=== PATIENT | female | born 1990 | race Caucasian/White ===

== ENCOUNTER → 2020-11-03 17:16 | Outpatient (CLI) | payer OTHER, SELFPAY ==
--- NOTE | ~2020-11-03 | XR_ITS ---
EXAMINATION: XR toe 1st RT min 2V INDICATION: Right first toe pain and swelling, initial encounter TECHNIQUE: Three views of the right first toe are obtained. COMPARISON: None available FINDINGS: There is an acute, traumatic, closed, oblique fracture at the dorsal base of the first dist al phalanx which extends to the interphalangeal joint. The fracture involves less than 50% of the art icular surface. Soft tissue swelling surrounds the fracture. Bone alignment is normal. No additional acute osseous abnormality is identified. IMPRESSION: 1. Acute intra-articular fracture at the dorsal base of the first distal phalanx. Reviewed, dictated and finalized at location B. IMPRESSION: 1. Acute intra-articular fracture at the dorsal base of the first distal phalan x.
== END ==
DX: S92.421A Displaced fracture of distal phalanx of right great toe, initial encounter for closed fracture (principal); X58.XXXA Exposure to other specified factors, initial encounter
CPT/HCPCS: 73660

== ENCOUNTER 2022-06-13 20:19 | Outpatient (CLI) | payer BC, SELFPAY ==
[2022-06-13 20:49] VITALS: BP 100/64; PULSE 86; RESP 16; TEMP 36.7
[2022-06-13 21:00] LABS: Basophils Percent Auto 0.3 % (0.2-1.2); Eosinophils Absolute Auto 0.1 K/mm3 (0-0.3); Eosinophils Percent Auto 0.6 % (0-4.4); Hematocrit 32.9 % (37.0-47.0); Hemoglobin 11.3 g/dL (12.0-15.0); Immature Granulocyte Absolute 0.08 K/mm3 (0.00-0.031); Immature Granulocyte Percent A 0.8 % (0-0.5); Lymphocytes Absolute Auto 1.89 K/mm3 (0.9-3.2); Lymphocytes Percent Auto 19.3 % (18.3-44.2); Mean Corpuscular HGB Conc 34.3 g/dl (32-36); Mean Corpuscular Hemoglobin 31.1 pg (26-34); Mean Corpuscular Volume 90.6 fl (80-100); Mean Platelet Volume 10.6 fl (7.4-10.4); Monocytes Absolute Auto 0.9 K/mm3 (0.1-0.6); Monocytes Percent Auto 9.3 % (2.6-8.5); Neutrophils Absolute Auto 6.8 K/mm3 (1.3-6.7); Neutrophils Percent Auto 69.7 % (45.5-73.1); Platelet Count Result 230 k/mm3 (150-375); Red Blood Count 3.63 M/mm3 (4.2-5.4); Red Cell Distribution Width 13.4 % (11.5-14.5); White Blood Count 9.8 K/mm3 (4.5-10.0)
[2022-06-13 21:12] LABS: Appearance Urine Slightly Cloudy (Clear); Bilirubin Urine Negative (Negative); Blood Urine Trace-lysed (Negative); Color Urine Light Yellow (Yellow); Glucose Urine UA Negative (Negative); Ketones Urine Negative (Negative); Leukocyte Esterase Ur Negative LEU/UL (NEGATIVE); Nitrate Urine Negative (Negative); Protein Urine Negative (Negative); Urobilinogen Urine 0.2 mg/dL (<2.0)
[2022-06-13 21:17] LABS: Bacteria Urine Trace /hpf; RBC Urine 0-2 /hpf (0-2); WBC Urine 0-3 /hpf (0-3)
[2022-06-13 21:18] LABS: Alanine Aminotransferase 34 U/L (6-35); Albumin Level 4.2 g/dL (3.5-5.1); Alkaline Phosphatase 93 U/L (38-126); Anion Gap 8 mmol/L (8-16); Aspartate Amino Transferase 27 U/L (14-36); Bilirubin,Total 0.3 mg/dL (0.2-1.3); Blood Urea Nitrogen 7 mg/dL (7-17); Calcium 9.7 mg/dL (8.4-10.2); Carbon Dioxide 22 mmol/L (22-30); Chloride 104 mmol/L (98-107); Estimated Glomerular Filt Rate > 60; Glucose 106 mg/dL (65-110); Potassium 3.6 mmol/L (3.4-5.0); Sodium 134 mmol/L (137-145); Uric Acid 3.7 mg/dL (2.5-7.5)
[2022-06-13 21:20] LABS: Add Urine Microscopic? YES
[2022-06-13 21:24] LABS: Creatinine Urine 12.7 mg/dL; Total Protein Urine Random 15 mg/dL; Ur Ttl Prot Creatinine Ratio 1.18 mg/mg (0-0.20)
--- NOTE | 2022-06-13 21:32 | PC.NURSE ---
Notified Cheyenne Sifuentes CNM of patient lab results and NST results. VSS. Occasional contractions during NST, patient was unaware of contractions and contractions palpated mild. FHT appropriate for gestational age. Order given to have patient continue 24 hour urine collection at home. Patient to follow-up as scheduled.
--- NOTE | 2022-06-13 21:52 | PC.NURSE ---
24 hour urine collection reviewed with patient. Patient instructed to bring 24 hour urine collection back to OB unit upon completion. labor precautions reviewed with patient. Kick counts reviewed with patient. HIP precautions reviewed with patient. Patient states understanding of all discharge instructions and precautions handouts provided to patient. Patient denies any questions and left OB unit ambulating at 2152.
== END 2022-06-13 21:52 | disposition home or self-care (01) ==
LOC: ANHOBOP 20:26 → ANHOBPP 20:26
PROVIDERS: Advanced Practice Midwife; Visit Provider Obstetrics & Gynecology
DX: O13.9 Gestational [pregnancy-induced] hypertension without significant proteinuria, unspecified trimester (principal); Z3A.00 Weeks of gestation of pregnancy not specified
CPT/HCPCS: 36415; 59025; 80053; 81001; 82570; 84156; 84550; 85025; 87086; 99199

== ENCOUNTER 2022-06-14 20:40 | Outpatient (NON) | payer BC, SELFPAY ==
[2022-06-14 21:22] VITALS: BMI 25.3
[2022-06-14 22:14] LABS: Collection Time Urine 24 HOURS
[2022-06-14 22:25] LABS: Creatinine Urine 39.7 mg/dL; Patient Weight 162 Lbs; Total Protein Urine Random 17 mg/dL
[2022-06-14 22:28] LABS: Creatinine Clearance Urine 168.2 ml/min (75-125); Specific Gravity Ur 1.015; Total Protein Urine 24 Hr 442 mg/24hr (28-141); Total Volume 24 Hour Urine 2600 ml
== END 2022-06-14 20:41 | disposition home or self-care (01) ==
LOC: ANHOBOP 20:48
PROVIDERS: Visit Provider Advanced Practice Midwife
DX: O26.899 Other specified pregnancy related conditions, unspecified trimester (principal)
CPT/HCPCS: 81050; 82575; 84156

== ENCOUNTER 2022-07-30 15:58 | Inpatient (IN) | payer BC, SELFPAY ==
[2022-07-30] VITALS (18 sets, daily range): BP systolic 111–137; BP diastolic 69–103; PULSE 75–96; RESP 14–16; TEMP 36.3–37; BMI 27.2
--- NOTE | 2022-07-30 16:21 | PC.NURSE ---
1615: CNM at bedside. Orders to do one dose of Cervidil.
--- NOTE | 2022-07-30 16:23 | WPDOBADMIT ---
Obstetrics - Admit Note Admission Note: record reviewed. No pertinent additions to the history and/or any subsequent changes in the physical findings that are not consistent with the expected course of the were found. IOL, oligohydramnios at term, reviewed with freida bauer cervadil Additions to the history and/or subsequent changes in the physical findings follow. None.
--- NOTE | 2022-07-30 16:52 | LDADM ---
This patient, Philomena Maloney, was admitted to Labor/Delivery/Recovery 105 on 07/30/22 at 15:58. Plans for labor, pain management and were discussed with patient. Patient/family oriented to hospital policies and general routines including ID bracelet, bed and alarms, visiting hours, pain management, procedures, bathroom and other care routines, personal items, smoking policy, room service/diet and guest tray routines, infant security routines, and visiting hours. Patient/Family are encouraged to report perceived risks to care and to ask questions if they do not understand what they are told or what they should do. See OBIX for further documentation.
[2022-07-30 17:37] LABS: Basophils Percent Auto 0.3 % (0.2-1.2); Eosinophils Percent Auto 0.4 % (0-4.4); Hematocrit 35.5 % (37.0-47.0); Hemoglobin 12.1 g/dL (12.0-15.0); Immature Granulocyte Absolute 0.03 K/mm3 (0.00-0.031); Immature Granulocyte Percent A 0.3 % (0-0.5); Lymphocytes Absolute Auto 1.52 K/mm3 (0.9-3.2); Lymphocytes Percent Auto 15.4 % (18.3-44.2); Mean Corpuscular HGB Conc 34.1 g/dl (32-36); Mean Corpuscular Hemoglobin 31.8 pg (26-34); Mean Corpuscular Volume 93.2 fl (80-100); Mean Platelet Volume 10.5 fl (7.4-10.4); Monocytes Percent Auto 9.8 % (2.6-8.5); Neutrophils Absolute Auto 7.3 K/mm3 (1.3-6.7); Neutrophils Percent Auto 73.8 % (45.5-73.1); Platelet Count Result 250 k/mm3 (150-375); Red Blood Count 3.81 M/mm3 (4.2-5.4); Red Cell Distribution Width 13.5 % (11.5-14.5); White Blood Count 9.9 K/mm3 (4.5-10.0)
[2022-07-30] MEDS: DINOPROSTONE 10 MG VAG INSERT VAGINAL (17:39)
--- NOTE | 2022-07-30 18:42 | WPDANESEPP ---
Anes - Eval Pre Procedure Procedure: labor epidural Date/Time: 07/30/22 18:42 Surgeon: marv Preop Diagnosis: pain during labor Pre Op Diagnosis: Induction of Labor Patient Data Age: 31 Gender: F Height: 1.7 m Weight: 79 kg Last Vital Signs Temp 36.8 C 07/30/22 17:01 Pulse 82 07/30/22 18:31 BP 117/78 07/30/22 18:31 O2 Del Method Room Air 07/30/22 16:51 Allergies Allergy/AdvReac Type Severity Reaction Status Date / Time No Known Allergies Allergy Verified 07/30/22 17:54 Home Medications Medication Instructions Recorded Confirmed Type ferrous sulfate 325 mg (65 mg 325 mg PO DAILY 07/02/22 07/02/22 History iron) tablet prenat.vits,nhi,pdh-hluz-yodxu 1 tablet PO HS 07/02/22 07/02/22 History Laboratory Tests 07/30/22 07/30/22 07/30/22 16:27 16:27 16:27 WBC 9.9 K/mm3 K/mm3 (4.5-10.0) RBC 3.81 M/mm3 L M/mm3 (4.2-5.4) Hgb 12.1 g/dL g/dL (12.0-15.0) Hct 35.5 % L % (37.0-47.0) MCV 93.2 fl fl (80-100) MCH 31.8 pg pg (26-34) MCHC 34.1 g/dl g/dl (32-36) RDW 13.5 % % (11.5-14.5) Plt Count 250 k/mm3 k/mm3 (150-375) MPV 10.5 fl H fl (7.4-10.4) Immature Gran % (Auto) 0.3 % % (0-0.5) Neut % (Auto) 73.8 % H % (45.5-73.1) Lymph % (Auto) 15.4 % L % (18.3-44.2) Dawes % (Auto) 9.8 % H % (2.6-8.5) Eos % (Auto) 0.4 % % (0-4.4) Baso % (Auto) 0.3 % % (0.2-1.2) Lymph # (Auto) 1.52 K/mm3 K/mm3 (0.9-3.2) Dawes # (Auto) 1.0 K/mm3 H K/mm3 (0.1-0.6) Eos # (Auto) 0.0 K/mm3 K/mm3 (0-0.3) Baso # (Auto) 0.0 K/mm3 K/mm3 (0.0-0.1) Abs Immat Gran (auto) 0.03 K/mm3 K/mm3 (0.00-0.031) Absolute Neuts (auto) 7.3 K/mm3 H K/mm3 (1.3-6.7) Absolute Nucleated RBC 0.0 K/mm3 K/mm3 (0.0-0.012) Nucleated RBC % 0.0 % % (0.0-0.2) RPR Pending Blood Type B Positive Antibody Screen Negative Patient hx anesthesia problems: none Family hx anesthesia problems: none Results Review: All pre-operative results and documents have been reviewed as part of the pre-operative evaluation. [facility] Past Medical History Medical History (Updated 07/30/22 @ 18:42 by Julia Alonso CRNA) IUP (intrauterine ), incidental Family History Family History (Updated 07/02/22 @ 14:41 by Sasha Khoury RN) Father Heart attack Grandparent Colon cancer Mother Hypothyroidism Social History Social History Smoking status: Never smoker Substance use: former Lack of Transportation: No Lack of Food: Never True Current Housing: I Have Housing Concerned About Future Housing: No Difficulty Paying Gas/Electric Bills: No Difficulty Paying for Meds: No Currently Unemployed: No Education: Associate Degree Difficulty w/ Childcare or Family Care: No Spiritual care concerns: No Exam Day of Procedure 07/30/22 18:42
[2022-07-30] MEDS: ACETAMINOPHEN 500 MG TABLET 1000 MG PO (22:04)
[2022-07-31] VITALS (131 sets, daily range): BP systolic 89–127; BP diastolic 43–99; PULSE 61–153; RESP 16; TEMP 36.3–36.8; O2SAT 85–100
[2022-07-31] MEDS: LACTATED RINGERS 1,000 ML 125 ML IV CONT ×2 (06:28→12:31)
[2022-07-31] MEDS: OXYTOCIN 30 UNITS/NS 500 ML 30 UNITS/500 ML BAG 6 UNITS IV CONT (06:34)
--- NOTE | 2022-07-31 07:52 | PM.OBPNVD ---
OB - PN: Subj Subjective Date/time seen: 07/31/22 07:52 SVE 2/90/-1 AROM small amount of clear, odorless fluid, anticipate vaginal delivery OB - PN: Obj Data Labs 07/30/22 16:27 Labs: Laboratory Results - last 24 hr 07/30/22 07/30/22 16:27 16:27 WBC 9.9 RBC 3.81 L Hgb 12.1 Hct 35.5 L MCV 93.2 MCH 31.8 MCHC 34.1 RDW 13.5 Plt Count 250 MPV 10.5 H Immature Gran % (Auto) 0.3 Neut % (Auto) 73.8 H Lymph % (Auto) 15.4 L Shoshone % (Auto) 9.8 H Eos % (Auto) 0.4 Baso % (Auto) 0.3 Lymph # (Auto) 1.52 [place]oshone # (Auto) 1.0 H Eos # (Auto) 0.0 Baso # (Auto) 0.0 Abs Immat Gran (auto) 0.03 Absolute Neuts (auto) 7.3 H Absolute Nucleated RBC 0.0 Nucleated RBC % 0.0 Blood Type B Positive Antibody Screen Negative OB - PN A/P Time Spent With Patient Time: Total time spent is greater than 50% in coordination of care (as documented) at patient's floor/unit and/or counseling patient:
[2022-07-31] MEDS: LACTATED RINGERS 1,000 ML 999 ML IV CONT (08:03)
[2022-07-31] MEDS: SODIUM CHLORIDE 0.9% IV 300 ML 600 ML I-UTERINE (11:59)
--- NOTE | 2022-07-31 14:51 | PM.OBPRVD ---
OB - Delivery Note Procedure Delivery date: 07/31/22 Procedure: Events: Oligohydramnios Delivery augmentation: Rupture of Membranes and Pitocin Delivery monitor: External FHT and Internal Uterine Route of delivery: Laceration Description: Perineal - 2nd Degree Delivery repair: vicryl Specimen: No Quantitative Blood Loss (ml): 213 Anesthesia type: Epidural Disposition: Floor Narrative: mom and baby stable and doing skin to skin [place] Baby Date of : 07/31/22 Time of : 14:33 Weeks of gestation at delivery: 40 Infant gender: Male Weight (pounds): 7 Weight (ounces): 9 presentation: compound position: Right Occiput Anterior Placenta delivery description: Spontaneous Cord Vessel Description: 3 Vessels, Clamped/Cut, Delayed Cord Clamping and Around Body score one minute: 9 score five minutes: 9
[2022-07-31] MEDS: OXYTOCIN 30 UNITS/NS 500 ML 30 UNITS/500 ML BAG 125 UNITS IV CONT (15:09)
[2022-07-31] MEDS: IBUPROFEN 600 MG TABLET PO ×2 (17:17→23:30)
[2022-07-31] MEDS: BENZOCAINE 20% AER SPR (*SP) 56 GM CAN 1 SPRAY TOPICAL (17:18)
[2022-07-31] MEDS: WITCH HAZEL 40 PADS 1 PAD TOPICAL (17:18)
--- NOTE | 2022-07-31 17:52 | OBPPTRN ---
1750-Patient transferred to post room #283 via wheelchair. Support person present. Oriented to unit, room, information board, rooming in, admission packet and security measures. Patient verbalizes understanding.
[2022-07-31] MEDS: DOCUSATE SODIUM 100 MG CAPSULE PO (23:30)
[2022-08-01 04:27] LABS: Hematocrit 29.9 % (37.0-47.0); Hemoglobin 10.1 g/dL (12.0-15.0)
[2022-08-01 08:00] VITALS: BP 113/74; PULSE 87; RESP 16; TEMP 36.4; O2SAT 99
--- NOTE | 2022-08-01 09:07 | PM.OBPNVD ---
OB - PN: Subj Subjective Date/time seen: 08/01/22 09:07 Patient comments: no complaints baby status: doing well OB - PN: Obj Data Labs 08/01/22 02:56 Labs: Laboratory Results - last 24 hr 08/01/22 02:56 Hgb 10.1 L Hct 29.9 L OB - PN A/P Plan day: 1 Plan: routine care Time Spent With Patient Time: Total time spent is greater than 50% in coordination of care (as documented) at patient's floor/unit and/or counseling patient: Time with patient: less than 15 minutes Review of Systems Review of Systems: All systems reviewed & are unremarkable except as noted in HPI and below Exam Narrative: Fundus firm and vaginal flow controlled. No lower ext redness, warmth, or edema. Negative homans. Const: General: comfortable Chest: Breast/axilla inspection: normal inspection of the breasts Resp: Effort & Inspection: normal respiratory effort Cardio: Rate: regular rate GI: GI Palp: Yes Soft to palpation Psych: Appearance: grossly normal Affect: normal affect Attitude: cooperative Thought content: Yes Normal thought content present Judgement: Good judgement present (Psych)
[2022-08-01] MEDS: DOCUSATE SODIUM 100 MG CAPSULE PO ×2 (09:10→15:55)
[2022-08-01] MEDS: IBUPROFEN 600 MG TABLET PO ×3 (09:10→21:35)
[2022-08-01] MEDS: MULTIVIT/MIN/PREN/FOL AC/IRON TABLET 1 TAB PO (09:10)
--- NOTE | 2022-08-01 09:30 | WPDANLDPN2 ---
Anes-Prog Note L&D Date/Time: 08/01/22 09:30 Comfortable throughout: labor and delivery Neuraxial method: epidural Epidural/Spinal procedure site: clean & non-tender Neuro status: Neuro function grossly intact. Cardiovascular status: normal Respiratory status: normal Airway patency: baseline Mental status: baseline Post-Op hydration status: normal Vital Signs: Last Vital Signs Temp 97.5 F L 08/01/22 08:00 Pulse 87 08/01/22 08:00 Resp 16 08/01/22 08:00 BP 113/74 08/01/22 08:00 Pulse Ox 99 08/01/22 08:00 O2 Del Method Room Air 07/30/22 16:51 Pain score (VAS): 0 I/O: Intake & Output 07/31/22 08/01/22 08/01/22 23:59 07:59 15:59 Intake Total 500 Balance 500 Patient feedback: Patient satisfied with anesthetic care.
[2022-08-01 20:01] VITALS: BP 105/67; PULSE 88; RESP 18; TEMP 36.6; O2SAT 100
[2022-08-02 07:45] VITALS: BP 106/69; PULSE 72; RESP 16; TEMP 36.5; O2SAT 99
--- NOTE | 2022-08-02 08:00 | PM.OBPNVD ---
OB - PN: Subj Subjective Date/time seen: 08/02/22 08:00 Patient comments: no complaints baby status: doing well OB - PN: Obj Data Labs 08/01/22 02:56 OB - PN A/P Plan day: 2 Plan: routine care and discharge home (F/U in 4 weeks) Time Spent With Patient Time: Total time spent is greater than 50% in coordination of care (as documented) at patient's floor/unit and/or counseling patient: Time with patient: less than 15 minutes Review of Systems Review of Systems: All systems reviewed & are unremarkable except as noted in HPI and below Exam Narrative: Fundus firm and vaginal flow controlled. No lower ext redness, warmth, or edema. Negative homans. Const: General: comfortable Chest: Breast/axilla inspection: normal inspection of the breasts Resp: Effort & Inspection: normal respiratory effort Cardio: Rate: regular rate GI: GI Palp: Yes Soft to palpation Psych: Appearance: grossly normal Affect: normal affect Attitude: cooperative Thought content: Yes Normal thought content present Judgement: Good judgement present (Psych)
[2022-08-02 09:40] LABS: Rapid Plasma Reagin Non-Reactive (NonReactive)
[2022-08-02] MEDS: DOCUSATE SODIUM 100 MG CAPSULE PO (10:07)
[2022-08-03 10:59] VITALS: BP 117/77; PULSE 87; RESP 16; TEMP 37.1; O2SAT 99
--- NOTE | 2022-08-16 07:53 | PM.OBDSVD ---
DS: Admitting Diagnosis Discharge Date 08/02/22 Admitting Diagnosis labor DS: Discharge Diagnosis Discharge Diagnosis (1) Vaginal delivery: Code(s): O80 - Encounter for full-term uncomplicated delivery Status: Acute OB - DS: Summary OB Procedures : None OB Procedures Intrapartum: Spontaneous Vag Delivery OB Procedures: : None Time Spent with Patient Time attestation: Total time spent providing and/or coordinating discharge services: Discharge Plan Discharge Attending physician on discharge: Philomena Sifuentes Consulting providers: Philomena Sifuentes; Sonal Monteiro; Julia Alonso; Yanira Navarrete Discharging Clinician: Sonal Monteiro Patient Disposition: Home, Self-Care Activity: pelvic rest Diet: as tolerated Discharge Instructions: Education: Mom and Baby Guide Given to: Mother Follow-Up: Call your delivering provider's office for an appointment to be seen in: 6 Weeks Mom and baby should come to the [facility] for the follow-up appointment. Appointment Date/Time: Wednesday, August 03, 2022 at 11:00 am What to expect at your follow-up visit: Physical Assessment Call [phone] if you are unable to keep your appointment time. BREAST CARE: * Wear a snug supportive bra. * For engorgement discomfort: Breast Feeding: * Apply warm moist washcloths * Express milk as needed to relieve engorgement * Wear loose clothing Bottle Feeding: * May apply ice packs * For sore nipples: * Identify correct latch-on * Apply warm moist washcloths before and after nursing * Air dry nipples after nursing * May apply Lansinoh cream to nipples PERINEAL CARE: * Until bleeding stops, use your sergio bottle after urinating * Change your pad frequently throughout the day * You may take sitz baths several times a day (fill your bathtub with warm water and soak for 20 minutes.) Do NOT bathe in the water * No tub baths until seen by your physician - You may shower ACTIVITY: * Rest as much as possible. * Do not exercise or lift anything heavier than your baby (such as laundry or other children.) * Avoid stairs or driving as much as possible. * Do not put anything into the vagina. No douching, tampons, or sexual activity until seen by physician. NOTIFY PHYSICIAN IF YOU HAVE ANY QUESTIONS OR IF ANY OF THE FOLLOWING SYMPTOMS OCCUR: * If your episiotomy or incision becomes red, swollen, or more painful than what you have experienced in the hospital. * If your vaginal bleeding becomes foul smelling. * If your vaginal bleeding becomes more heavy than a period or if your bleeding changes from pink to bright red. However, you may pass an occasional walnut-sized clot once or twice for the first week . * If you experience a sharp, shooting pain in you calves. * If you discover a hard, reddened area on your breast or if you experience flu-like symptoms. DIET: * Eat regular, well-balanced meals. * Drink plenty of fluids daily. If , drink to thirst. Follow-up/Referrals: Philomena Sifuentes CNM [Certified Nurse Hospital Clinic Assistant] - 6 Weeks Discharge Medications: Continued prenat.vits,nhi,cdb-zbjh-njjgx Tablet 1 tablet PO HS Discontinued ferrous sulfate 325 mg (65 mg iron) Tablet 325 mg PO DAILY Date of admission: 07/30/22 15:58 Primary Care Provider: UNKNOWN,DOCTOR Admitting Provider: John Hartley Attending physician on admission: John Hartley Condition: Stable
== END 2022-08-02 12:17 | disposition home or self-care (01) | DRG 807 ==
LOC: ANHLDR 16:09 → ANHOB2 07-31 17:50
PROVIDERS: Admitting Provider Obstetrics & Gynecology; Referring Provider Advanced Practice Midwife; Visit Provider Obstetrics & Gynecology
DX: O41.03X0 Oligohydramnios, third trimester, not applicable or unspecified (principal); Z37.0 Single live birth; O70.1 Second degree perineal laceration during delivery; Z3A.40 40 weeks gestation of pregnancy
CPT/HCPCS: 36415; 85014; 85018; 85025; 86592; 86850; 86900; 86901; A9270; J2590; J2795; J7030; J7120

== ENCOUNTER 2023-05-13 00:48 | Day surgery (SDC) | payer BC, SELFPAY ==
[2023-04-19 10:26] VITALS: BMI 22.0
--- NOTE | 2023-05-11 09:22 | SUR.PREOP ---
Patient called regarding upcoming procedure. Reviewed preop instructions, appointment times, and procedure prep.
[2023-05-13 09:43] VITALS: BP 106/70; PULSE 104; RESP 16; TEMP 36.4; O2SAT 100; BMI 21.9
[2023-05-13] MEDS: LACTATED RINGERS 1,000 ML 150 ML IV CONT (10:19)
--- NOTE | 2023-05-13 10:30 | PM.HPGS ---
History of Present Illness History of Present Illness Consent: Risks, benefits, and alternatives have been discussed and questions answered. Patient agrees to proceed with procedure. Chief complaint: Melena,Anal Fissure,IBS-C Narrative: Philomena Maloney is a 32 year old female here for colonoscopy, few months after having vaginal delivery had some intermittent bleeding with anal discomfort, diagnosed with fissure. Recently doing ok, also h/o constipation Review of Systems Constitutional: Constitutional: Denies headache(s) and Denies weakness Eyes: Eyes: Denies blurry vision ENT: Reports Normal hearing present, Denies headache(s) and Denies neck pain Cardiovascular: Cardiovascular: Denies chest pain and Denies dyspnea Respiratory: Respiratory: Denies dyspnea Gastrointestinal: Gastrointestinal: Reports no additional gastrointestinal complaints Genitourinary: Genitourinary: Denies dysuria Musculoskeletal: Musculoskeletal: Denies neck pain Integumentary/Breasts: Skin/Breast: Denies dry skin Neurologic: Reports Normal hearing present, Denies headache(s) and Denies weakness Psychiatric: Psychiatric: Denies anxiety Endocrine: Endocrine: Denies change in body appearance Hematologic/Lymphatic: Hematologic/Lymphatic: Denies easy bleeding Allergic/Immunologic: Allergic/Immunologic: Denies urticaria PMFSH Past Medical History Medical History (Updated 03/15/23 @ 16:09 by Ale Anna, ANA) Anal fissure Anal skin tag Family hx colonic polyps Family hx of colon cancer Hematochezia Irritable bowel syndrome with constipation IUP (intrauterine ), incidental Family History Family History (System 09/06/22 @ 13:08 by Scott Cristina) Father Heart attack Grandparent Colon cancer Mother Hypothyroidism Social History Social History (System 09/06/22 @ 13:08 by Scott Cristina) Smoking status: Never smoker Alcohol intake: current Alcohol use details: 5 drinks monthly Substance use: former Substance use type: does not use Lack of Transportation: No Lack of Food: Never True Current Housing: I Have Housing Concerned About Future Housing: No Difficulty Paying Gas/Electric Bills: No Difficulty Paying for Meds: No Currently Unemployed: No Education: Associate Degree Difficulty w/ Childcare or Family Care: No Living arrangements: with family Spiritual care concerns: No Meds Home Medications and Allergies Home Medications Medication Instructions Recorded Confirmed Type polyethylene glycol 3350 17 17 g PO DAILY 01/02/24 01/02/24 History gram/dose oral powder (Miralax) Allergies Allergy/AdvReac Type Severity Reaction Status Date / Time No Known Allergies Allergy Verified 04/19/23 10:27 Vital Signs Vital Signs - 24 hr 05/13/23 09:43 Temperature 97.5 F L Pulse Rate 104 H Respiratory Rate 16 Blood Pressure 106/70 Pulse Oximetry 100 Oxygen Delivery Room Air Exam Const: General: comfortable and no acute distress HENMT: Face/Nose/Sinus: Normal nares present Eyes: General: appearance normal, both eyes and all related structures Neck: Neck: no JVD Resp: Auscultation: clear to auscultation bilaterally Cardio: Rate: regular rate Rhythm: regular rhythm GI: Inspection: non-distended GI Palp: Yes Soft to palpation Skin: General skin exam: normal color Neuro: General: gait normal Speech: normal speech Extrem: General: normal to inspection Psych: Mental Status: mental status grossly normal Assessment and Plan Assessment and plan (1) Hematochezia: Code(s): K92.1 - Melena Status: Acute Assessment and Plan: probably perianal source here for colonoscopy
[2023-05-13 10:50] VITALS: BP 86/50; PULSE 94; RESP 20; O2SAT 100
[2023-05-13 11:00] VITALS: BP 99/66; PULSE 85; RESP 17; O2SAT 100
[2023-05-13 11:10] VITALS: BP 108/72; PULSE 76; RESP 17; O2SAT 100
--- NOTE | 2023-06-06 09:09 | P.PNAN_ITS ---
Anes - Initial Pre Proc Eval Procedure: Operation Date: 05/13/23 11:00 Proposed Procedures p Colonoscopy - Joe Quezada MD Date/Time: 06/06/23 09:09 Surgeon: Joe Quezada MD Pre Op Diagnosis: Melena,Anal Fissure,IBS-C Patient Data Age: 32 Gender: F Height: 1.7 m Weight: 63.5 kg Last Vital Signs Temp 97.5 F L 05/13/23 09:43 Pulse 76 05/13/23 11:10 Resp 17 05/13/23 11:10 BP 108/72 05/13/23 11:10 Pulse Ox 100 05/13/23 11:10 O2 Del Method Room Air 05/13/23 11:10 Allergies Allergy/AdvReac Type Severity Reaction Status Date / Time No Known Allergies Allergy Verified 04/19/23 10:27 Home Medications Medication Instructions Recorded Confirmed Type polyethylene glycol 3350 17 17 g PO DAILY 04/19/23 04/19/23 History gram/dose oral powder (Miralax) Patient hx anesthesia problems: none Family hx anesthesia problems: none Results Review: All pre-operative results and documents have been reviewed as part of the pre- operative evaluation. [facility] Past Medical History Medical History (Updated 03/15/23 @ 16:09 by Ale Anna APRN) Anal fissure Anal skin tag Family hx colonic polyps Family hx of colon cancer Hematochezia Irritable bowel syndrome with constipation IUP (intrauterine ), incidental Family History Family History (System 09/06/22 @ 13:08 by Scott Cristina) Father Heart attack Grandparent Colon cancer Mother Hypothyroidism Social History Social History (System 09/06/22 @ 13:08 by Scott Cristina) Smoking status: Never smoker Alcohol intake: current Alcohol use details: 5 drinks monthly Substance use: former Substance use type: does not use Lack of Transportation: No Lack of Food: Never True Current Housing: I Have Housing Concerned About Future Housing: No Difficulty Paying Gas/Electric Bills: No Difficulty Paying for Meds: No Currently Unemployed: No Education: Associate Degree Difficulty w/ Childcare or Family Care: No Living arrangements: with family Spiritual care concerns: No Anes - Eval Final PreProcedure Day of Procedure 06/06/23 09:09 Patient weight: normal Heart: regular rate and rhythm Lungs: clear to auscultation Airway: Mallampati scale class II Neurological: alert and oriented Last oral intake: >/= 8 hours ASA classification: II Emergent: no Anesthetic plan: proceed Anesthesia type and monitoring: general GIVS and standard monitoring Results Review: All pre-operative results and documents have been reviewed as part of the pre- operative evaluation. Informed Consent: The patient's anesthetic plan and its attendant risks and benefits were discussed with the patient/family/POA. Questions were solicited and answers provided to the satisfaction of the patient/family/POA.
== END 2023-05-13 11:19 | disposition home or self-care (01) ==
PROVIDERS: Referring Provider Obstetrics & Gynecology; Visit Provider Internal Medicine Gastroenterology
PROC: 0DJD8ZZ Inspection of Lower Intestinal Tract, Via Natural or Artificial Opening Endoscopic (ICD-10-PCS; CPT 45378; principal; 2023-05-13 11:00)
DX: K92.1 Melena (principal); Z80.0 Family history of malignant neoplasm of digestive organs; K58.1 Irritable bowel syndrome with constipation
CPT/HCPCS: 45378; J2704; J7120

== ENCOUNTER 2023-11-03 14:18 | Emergency (ER) | payer BC, SELFPAY ==
--- NOTE | ~2023-11-03 | US_ITS ---
Right upper quadrant ULTRASOUND Ordering provider: Radha Villalpando PA-C History: . biliary colic vs cholecystitis . Comparison: None. FINDINGS: LIVER: Normal size and echotexture. The liver measures 16.8 cm. No focal hepatic lesions or perihepat ic fluid collections are identified. Normal flow of the portal GALLBLADDER: Unremarkable. No evidence for stones, sludge, gallbladder wall thickening or pericholecy stic fluid collections. The wall thickness is 2 mm. A negative sonographic Jeffers's sign was noted. BILIARY DUCTS: No evidence for intra or extrahepatic biliary dilation. Common bile duct measures 5 mm in diameter which is within normal limits. PANCREAS: Normal echotexture and size. IMPRESSION: Unremarkable right upper quadrant ultrasound of the abdomen. Reviewed, dictated and finalized at location A.
[2023-11-03 14:36] VITALS: BP 131/57; PULSE 100; RESP 18; TEMP 36.4; O2SAT 100
--- NOTE | 2023-11-03 14:38 | ED.ABDPAIN ---
HPI - Abdominal Pain General Chief Complaint: Abdominal Pain <John Corea APRN - Last Filed: 11/03/23 14:40> Stated Complaint: upper abd pain, nausea <John Corea APRN - Last Filed: 11/03/23 14:40> Time Seen by Provider: 11/03/23 18:34 <John Corea APRN - Last Filed: 11/03/23 14:40> Focused HPI: 33-year-old female nontoxic appearing history of IBS presents emergency room for evaluation of upper abdominal pain that probably started earlier today. This associated with the nausea. Denies any vomiting, diarrhea or constipation. Denies any fevers. Patient describes the pain as labor pains. GENERAL: Well-appearing, well-nourished, and in no acute distress. HEAD: Normocephalic, atraumatic. CHEST: Clear to auscultation. No respiratory distress. HEART: Regular rate and rhythm. NEURO: Alert and oriented x3. Patient screened in triage and initial orders placed. Additional care and disposition to be based upon diagnostic testing and treatment. <John Corea APRN - Last Filed: 11/03/23 14:40> History of Present Illness HPI narrative: Agree with the above triage note. 33-year-old female with a reported history of IBS presents to the emergency department for right upper quadrant abdominal pain that started around 1:30 p.m.. Patient states she had pizza an hour later began having pain in her epigastrium and right upper quadrant. She reported associated belching and nausea. Described the pain as a stabbing pain. States she has had this pain in the past but has never been worked up for it. Denies prior abdominal surgeries. States she did have some diarrhea last night, denies obstipation. Denies fever, vomiting, chest pain shortness of breath, dysuria or hematuria, urinary frequency urgency. She is 15 months . She notes that she had a colonoscopy 1 year ago which showed an anal fissure but was otherwise unremarkable. States her symptoms have resolved now other than some minimal discomfort in her epigastrium and right upper quadrant. Denies melena or hematochezia. <Radha Villalpando PA-C - Last Filed: 11/03/23 20:23> Related Data Home Medications: Home Medications Medication Instructions Recorded Confirmed polyethylene glycol 3350 17 17 g PO DAILY 04/19/23 06/09/23 gram/dose oral powder (Miralax) <John Corea APRN - Last Filed: 11/03/23 14:40> Allergies/Adverse Reactions: Allergies Allergy/AdvReac Type Severity Reaction Status Date / Time No Known Allergies Allergy Verified 04/19/23 10:27 <John Corea APRN - Last Filed: 11/03/23 14:40> Review of Systems Review of Systems: All systems reviewed & are unremarkable except as noted in HPI and below <Radha Villalpando PA-C - Last Filed: 11/03/23 20:23> [facility] Past Medical History Medical History: Medical History Anal fissure Anal skin tag Family hx colonic polyps Family hx of colon cancer Hematochezia Irritable bowel syndrome with constipation IUP (intrauterine ), incidental <John Corea APRN - Last Filed: 11/03/23 14:40> Family History Family History: Family History Father Heart attack Grandparent Colon cancer Mother Hypothyroidism <John Corea APRN - Last Filed: 11/03/23 14:40> Social History Social History: Social History Smoking status: Never smoker Alcohol intake: current Alcohol use details: 5 drinks monthly Substance use: former Substance use type: does not use Lack of Transportation: No Lack of Food: Never True Current Housing: I Have Housing Concerned About Future Housing: No Difficulty Paying Gas/Electric Bills: No Difficulty Paying for Meds: No Currently Unemployed: No Education: Associate Degree Difficulty w/ Childcare or Family Ca
[2023-11-03 15:13] LABS: Basophils Percent Auto 0.4 % (0.2-1.2); Eosinophils Percent Auto 0.2 % (0-4.4); Hematocrit 38.2 % (37.0-47.0); Lymphocytes Absolute Auto 1.14 K/mm3 (0.9-3.2); Mean Corpuscular Hemoglobin 30.6 pg (26-34); Mean Corpuscular Volume 89.9 fl (80-100); Mean Platelet Volume 10.6 fl (7.4-10.4); Monocytes Absolute Auto 0.7 K/mm3 (0.1-0.6); Monocytes Percent Auto 13.5 % (2.6-8.5); Neutrophils Absolute Auto 3.1 K/mm3 (1.3-6.7); Neutrophils Percent Auto 62.9 % (45.5-73.1); Platelet Count Result 223 k/mm3 (150-375); Red Blood Count 4.25 M/mm3 (4.2-5.4); Red Cell Distribution Width 12.3 % (11.5-14.5)
[2023-11-03 15:23] LABS: Alanine Aminotransferase 12 U/L (6-35); Alkaline Phosphatase 56 U/L (38-126); Anion Gap 12 mmol/L (4-12); Appearance Urine Clear (Clear); Aspartate Amino Transferase 21 U/L (14-36); Bacteria Urine 2+ /hpf; Bilirubin Urine Negative (Negative); Bilirubin,Total 0.5 mg/dL (0.2-1.3); Blood Urea Nitrogen 13 mg/dL (7-17); Blood Urine 2+ (Negative); Calcium 9.4 mg/dL (8.4-10.2); Calcium Oxalate Crystals Urine Present /hpf; Carbon Dioxide 24 mmol/L (22-30); Chloride 101 mmol/L (98-107); Color Urine Yellow (Yellow); Estimated Glomerular Filt Rate > 60; Glucose 99 mg/dL (65-110); Glucose Urine UA Negative (Negative); Ketones Urine Trace mg/dL (Negative); Leukocyte Esterase Ur 1+ LEU/UL (Negative); Lipase 89 U/L (23-300); Need Manual Microscopic Reviewed; Nitrate Urine Negative (Negative); Potassium 3.9 mmol/L (3.4-5.0); Protein Urine Trace mg/dL (Negative); Sodium 137 mmol/L (137-145); Specific Grav Ur 1.031 (1.001-1.035); Squamous Epithelial Cell Urine Few /hpf (Few)
[2023-11-03 15:24] LABS: Add Urine Microscopic? YES
[2023-11-03 19:17] LABS: Pregnancy On Board Control Positive; Urine Pregnancy Test Negative
[2023-11-03] MEDS: BELLADONNA ALK/PHENOB ELIX 10 ML, MAG HYDROX/ALUMINUM HYD/SIMETH 30 ML, LIDOCAINE HCL 2... PO (19:28)
[2023-11-03] MEDS: FAMOTIDINE 20 MG/2 ML VIAL IV PUSH (19:29)
[2023-11-03 19:34] VITALS: BP 114/81; PULSE 84; RESP 16; O2SAT 100
[2023-11-03 19:49] LABS: Lactic Acid Reflex 1.4 mmol/L (0.7-2.0)
[2023-11-03 20:35] VITALS: BP 125/72; PULSE 74; RESP 18; TEMP 36.8; O2SAT 100
== END 2023-11-03 20:36 | disposition home or self-care (01) ==
PROVIDERS: Nurse Practitioner Family; Emergency Provider Physician Assistant
DX: R10.13 Epigastric pain (principal); K58.1 Irritable bowel syndrome with constipation
CPT/HCPCS: 36415; 76705; 80053; 81001; 81025; 83605; 83690; 85025; 87086; 96374; 99284; A9270

== ENCOUNTER 2025-04-14 12:02 | Emergency (ER) | payer BC, SELFPAY ==
--- NOTE | ~2025-04-14 | XR_ITS ---
Examination: XR chest 2V Clinical History: cough Comparison: None Technique: PA and Lateral Findings: Cardiomediastinal silhouette normal size and configuration. Lungs clear. No acute bony abnormality. IMPRESSION: 1. No acute cardiopulmonary findings. Reviewed, dictated and finalized at location R. 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
--- OUTSIDE RECORDS SUMMARY | 2025-04-14 12:08 | XMS_ITS | Data Portability ---
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 Patient will come back in a year unless there are new symptoms. [email or web address] Not available 06/15/2024 16:26:51 Plan of Treatment Reminders Order Date Submit Date Provider Last Modified By Organization Details Last Modified Time Details Appointments None recorded. Lab None recorded. Referral pelvic floor therapy referral 2024 025 [facility], [address], [address], [place], [address], 5 12:39:53 gastroenter ologist referral 2022 023 [facility], [address], [address], [place], [address], 3 10:40:15 Procedures None recorded. Surgeries None recorded. Imaging US, obstetric, biophysical profile + non-stress test 2022 023 [email or web address] [facility], [address], [address], [place], [address], 3 15:42:58 non-stress test 2022 023 [place], [facility] [address], [place], [address], 3 16:16:19 Medication Orders metronidazo le 500 mg tablet 2022 023 [email or web address] [id number], [address], [place], [id number], 5 16:30:40 nystatin-tr iamcinolone 100,000 unit/gram-0 .1 % topical ointment 2022 023 [email or web address] [id number], [address], [place], [id number], 3 15:54:51 Patient TargetsNo targets recorded. Patient InstructionsNo instructions recorded. Reason for Referral Viner Operator Referral for Hematochezia Referring Physician: Brit Landaverde, MANAGER RESEARCH DEVELOPMENT, Encounter Date: 02/23/2023 Pelvic Floor Therapy Referra l for Dyspareunia Referring Physician: Awais May MANAGER RESEARCH DEVELOPMENT, Encounter Date: 06/15/2024 Results Created Date Observation Date Name Description Value Unit Range Abnormal Flag Note LastModifiedBy Organization Detail LastModifiedTime 07/03/1907/02/2022 CBC W/DIF F WBC 8.1 10'3/ uL 3.6-10 .2 Not Available [facility] (Lab) [address], [place], [address], 07/03/2022 03:24:19 07/03/19 23 07/02/2022 CBC W/DIF F RBC 3.54 10'6/ uL (based on docume nted legal sex) 4.10-5 .30 low Not Available [facility] (Lab) [address], [place], [address], 07/03/2022 03:24:19 07/03/19 23 07/02/2022 CBC W/DIF F HGB 11.2 g/dL (based on docume nted legal sex) 11.9-1 5.8 low Not Available [facility] (Lab) [address], [place], [address], 07/03/2022 03:24:19 07/03/19 23 07/02/2022 CBC W/DIF F HCT 33.7 % (based on docume nted legal sex) 37.4-4 8.3 low Not Available [facility] (Lab) [address], [place], [address], 07/03/2022 03:24:19 07/03/19 23 07/02/2022 CBC W/DIF F MCV 95.2 fL 82.0-9 9.0 Not Available [facility] (Lab) [address], [place], [address], 07/03/2022 03:24:19 07/03/19 23 07/02/2022 CBC W/DIF F MCH 31.6 pg 27.0-3 3.0 Not Available [facility] (Lab) [address], [place], [address], 07/03/2022 03:24:19 07/03/19 23 07/02/2022 CBC W/DIF F MCHC 33.2 g/dL 32.0-3 6.0 Not Available [facility] (Lab) [address], [place], [address], 07/03/2022 03:24:19 07/03/19 23 07/02/2022 CBC W/DIF F RDW 13.5 % 11.0-1 5.0 Not Available [facility] (Lab) [address], [place], [address], 07/03/2022 03:24:19 07/03/19 23 07/02/2022 CBC W/DIF F plt 245 10'3/ uL 150-45 0 Not Available [facility] (Lab) [address] [facility], [place], [address], 07/03/2022 03:24:19 07/03/19 23 07/02/2022 CBC W/DIF F MPV 11.9 fL 9.8-12 .7 Not Available [facility] (Lab) [address], [place], [address], 07/03/2022 03:24:19 07/03/19 23 07/02/2022 CBC W/DIF F NRBC's 0.0 % 0 Not Available [facility] (Lab) [address], [place], [address], 07/03/2022 03:24:19 07/03/19 23 07/02/2022 CBC W/DIF F absolute NRBCs 0.0 10'3/ uL 0 Not Available [facility] (Lab) [address], [place], [address], 07/03/2022 03:24:19 07/03/19 23 07/02/2022 CBC W/DIF F neutrophils 72.4 % 37.0-7 2.0 high Not Available [facility] (Lab) [address] [facility], [place], [address], 07/03/2022 03:24:19 07/03/19 23 07/02/2022 CBC W/DIF F lymphocytes 15.8 % 16.0-4 8.0 low Not Available [facility] (Lab) [address] [facility], [place], [address], 07/03/2022 03:24:19 07/03/19 23 07/02/2022 CBC W/DIF F monocytes 9.8 % 4.0-14 .0 Not Available [facility] (Lab) [address], [place], [address], 07/03/2022 03:24:19 07/03/19 23 07/02/2022 CBC W/DIF F eosinophils 0.9 % 0.0-9. 0 Not Available [facility] (Lab) [address] [facility], [place], [address], 07/03/2022 03:24:19 07/03/19 23 07/02/2022 CBC W/DIF F basophils 0.4 % 0.0-2. 0 Not Available [facility] (Lab) [address] [facility], [place], [address], 07/03/2022 03:24:19 07/03/19 23 07/02/2022 CBC W/DIF F immature granulocytes 0.7 % no define d refere nce range Not Available [facility] (Lab) [address] [facility], [place], [address], 07/03/2022 03:24:19 07/03/19 23 07/02/2022 CBC W/DIF F absolute neutrophils 5.9 10'3/ uL 1.1-6. 0 Not Available [facility] (Lab) [address] [facility], [place], [address], 07/03/2022 03:24:19 07/03/19 23 07/02/2022 CBC W/DIF F absolute lymphocytes 1.3 10'3/ uL 0.7-3. 4 Not Available [facility] (Lab) [address] [facility], [place], [address], 07/03/2022 03:24:19 07/03/19 23 07/02/2022 CBC W/DIF F absolute monocytes 0.8 10'3/ uL 0.3-1. 0 Not Available [facility] (Lab) [address] [facility], [place], [address], 07/03/2022 03:24:19 07/03/19 23 07/02/2022 CBC W/DIF F absolute eosinophils 0.1 10'3/ uL 0.0-0. 6 Not Available [facility] (Lab) [address] [facility], [place], [address], 07/03/2022 03:24:19 07/03/19 23 07/02/2022 CBC W/DIF F absolute basophils 0.0 10'3/ uL 0.0-0. 1 Not Available [facility] (Lab) [address] [facility], [place], [address], 07/03/2022 03:24:19 07/03/19 23 07/02/2022 CBC W/DIF F absolute immature granulocytes 0.1 10'3/ uL 0.00-0 .10 2022 1:52 AM: P indic ates parti al resul ts on a panel have been relea sed. Addit ional resul ts will follo w. 2022 1:52 AM: This resul t has been final verif ied. No addit ional or white ed resul ts are expec jesus. Not Available [facility] (Lab) [address] [facility], [place], [address], 07/03/2022 03:24:19 07/03/19 23 07/02/2022 URIC ACID uric acid 4.7 mg/dL 2.3-6. 6 Not Available [facility] (Lab) [address] [facility], [place], [address], 07/03/2022 03:24:23 07/03/19 23 07/02/2022 CMP(C OMPRE HENSI VE METAB OLIC PANEL ) sodium 136 mmol/ L 133-14 6 Not Available [facility] (Lab) [address] [facility], [place], [address], 07/03/2022 03:24:24 07/03/19 23 07/02/2022 CMP(C OMPRE HENSI VE METAB OLIC PANEL ) potassium 4.1 mmol/ L 3.5-5. 1 Not Available [facility] (Lab) [address] [facility], [place], [address], 07/03/2022 03:24:24 07/03/19 23 07/02/2022 CMP(C OMPRE HENSI VE METAB OLIC PANEL ) chloride 103 mmol/ L 98-107 Not Available [facility] (Lab) [address] [facility], [place], [address], 07/03/2022 03:24:24 07/03/19 23 07/02/2022 CMP(C OMPRE HENSI VE METAB OLIC PANEL ) carbon dioxide 26 mmol/ L 21-31 Not Available [facility] (Lab) [address] [facility], [place], [address], 07/03/2022 03:24:24 07/03/19 23 07/02/2022 CMP(C OMPRE HENSI VE METAB OLIC PANEL ) anion gap 7 mmol/ L 4-13 Not Available [facility] (Lab) [address] [facility], [place], [address], 07/03/2022 03:24:24 07/03/19 23 07/02/2022 CMP(C OMPRE HENSI VE METAB OLIC PANEL ) blood urea nitrogen 8 mg/dL 7-25 Not Available [facility] (Lab) [address] [facility], [place], [address], 07/03/2022 03:24:24 07/03/19 23 07/02/2022 CMP(C OMPRE HENSI VE METAB OLIC PANEL ) creatinine 0.55 mg/dL 0.60-1 .30 low Not Available [facility] (Lab) [address] [facility], [place], [address], 07/03/2022 03:24:24 07/03/19 23 07/02/2022 CMP(C OMPRE HENSI VE METAB OLIC PANEL ) egfrcr (CKD-epi 2020) >90 mL/mi n/1.7 3_m2 >=60 Not Available [facility] (Lab) [address] [facility], [place], [address], 07/03/2022 03:24:24 07/03/19 23 07/02/2022 CMP(C OMPRE HENSI VE METAB OLIC PANEL ) calcium 9.2 mg/dL 8.3-10 .5 Not Available [facility] (Lab) [address] [facility], [place], [address], 07/03/2022 03:24:24 07/03/19 23 07/02/2022 CMP(C OMPRE HENSI VE METAB OLIC PANEL ) glucose 65 mg/dL 70-100 low Not Available [facility] (Lab) [address] [facility], [place], [address], 07/03/2022 03:24:24 07/03/19 23 07/02/2022 CMP(C OMPRE HENSI VE METAB OLIC PANEL ) protein, total 6.0 g/dL 6.4-8. 3 low Not Available [facility] (Lab) [address] [facility], [place], [address], 07/03/2022 03:24:24 07/03/19 23 07/02/2022 CMP(C OMPRE HENSI VE METAB OLIC PANEL ) albumin 3.6 g/dL 3.5-5. 0 Not Available [facility] (Lab) [address] [facility], [place], [address], 07/03/2022 03:24:24 07/03/19 23 07/02/2022 CMP(C OMPRE HENSI VE METAB OLIC PANEL ) ALT 22 units /L 9-43 Not Available [facility] (Lab) [address] [place], [address], 07/03/2022 03:24:24 07/03/19 23 07/02/2022 CMP(C OMPRE HENSI VE METAB OLIC PANEL ) alkaline phosphatase 93 units /L 34-104 Not Available [facility] (Lab) [address] [place], [address], 07/03/2022 03:24:24 07/03/19 23 07/02/2022 CMP(C OMPRE HENSI VE METAB OLIC PANEL ) AST 16 units /L 13-39 Not Available [facility] (Lab) [address] [place], [address], 07/03/2022 03:24:24 07/03/19 23 07/02/2022 CMP(C OMPRE HENSI VE METAB OLIC PANEL ) bilirubin, total 0.3 mg/dL 0.2-1. 2 Not Available [facility] (Lab) [address] [facility], [place], [address], 07/03/2022 03:24:24 07/03/19 23 07/02/2022 CULTU RE: GROUP B STREP SCREE N, REFLE X SUSCE PTIBI LITY result report SEE RESULT S BELOW Test: Cultu re: Group B Strep , Refle x Susce ptibi lity ([facility]/ [facility] ) Speci men Sourc e: Vagin a/Rec sam Speci men Type: Vagin al/Re ctal Speci men Date: 2022 1:24 PM Resul t Date: 2022 3:52 PM Resul t Statu s: Final resul t Abnor mal: No Resul ting Lab: [facility] [address] [facility] [address] Tel: CULTU RE ----- ----- ----- --- No Group B strep isola jesus at 2 days (ave ctive broth enhan cemen t) Not Available [facility] (Lab) [address] [facility], [place], [address], 07/05/2022 16:55:28 07/10/19 23 07/09/2022 CBC W/DIF F WBC 8.2 10'3/ uL 3.6-10 .2 Not Available [facility] (Lab) [address] [facility], [place], [address], 07/10/2022 04:22:38 07/10/19 23 07/09/2022 CBC W/DIF F RBC 3.77 10'6/ uL (based on docume nted legal sex) 4.10-5 .30 low Not Available [facility] (Lab) [address] [place], [address], 07/10/2022 04:22:38 07/10/19 23 07/09/2022 CBC W/DIF F HGB 11.6 g/dL (based on docume nted legal sex) 11.9-1 5.8 low Not Available [facility] (Lab) [address], [place], [address], 07/10/2022 04:22:38 07/10/19 23 07/09/2022 CBC W/DIF F HCT 35.2 % (based on docume nted legal sex) 37.4-4 8.3 low Not Available [facility] (Lab) [address], [place], [address], 07/10/2022 04:22:38 07/10/19 23 07/09/2022 CBC W/DIF F MCV 93.4 fL 82.0-9 9.0 Not Available [facility] (Lab) [address], [place], [address], 07/10/2022 04:22:38 07/10/19 23 07/09/2022 CBC W/DIF F MCH 30.8 pg 27.0-3 3.0 Not Available [facility] (Lab) [address] [facility], [place], [address], 07/10/2022 04:22:38 07/10/19 23 07/09/2022 CBC W/DIF F MCHC 33.0 g/dL 32.0-3 6.0 Not Available [facility] (Lab) [address], [place], [address], 07/10/2022 04:22:38 07/10/19 23 07/09/2022 CBC W/DIF F RDW 13.6 % 11.0-1 5.0 Not Available [facility] (Lab) [address], [place], [address], 07/10/2022 04:22:38 07/10/19 23 07/09/2022 CBC W/DIF F plt 272 10'3/ uL 150-45 0 Not Available [facility] (Lab) [address] [facility], [place], [address], 07/10/2022 04:22:38 07/10/19 23 07/09/2022 CBC W/DIF F MPV 11.8 fL 9.8-12 .7 Not Available [facility] (Lab) [address] [facility], [place], [address], 07/10/2022 04:22:38 07/10/19 23 07/09/2022 CBC W/DIF F NRBC's 0.0 % 0 Not Available [facility] (Lab) [address] [facility], [place], [address], 07/10/2022 04:22:38 07/10/19 23 07/09/2022 CBC W/DIF F absolute NRBCs 0.0 10'3/ uL 0 Not Available [facility] (Lab) [address] [facility], [place], [address], 07/10/2022 04:22:38 07/10/19 23 07/09/2022 CBC W/DIF F neutrophils 73.8 % 37.0-7 2.0 high Not Available [facility] (Lab) [address] [facility], [place], [address], 07/10/2022 04:22:38 07/10/19 23 07/09/2022 CBC W/DIF F lymphocytes 15.4 % 16.0-4 8.0 low Not Available [facility] (Lab) [address] [facility], [place], [address], 07/10/2022 04:22:38 07/10/19 23 07/09/2022 CBC W/DIF F monocytes 9.4 % 4.0-14 .0 Not Available [facility] (Lab) [address] [place], [address], 07/10/2022 04:22:38 07/10/19 23 07/09/2022 CBC W/DIF F eosinophils 0.7 % 0.0-9. 0 Not Available [facility] (Lab) [address] [place], [address], 07/10/2022 04:22:38 07/10/19 23 07/09/2022 CBC W/DIF F basophils 0.2 % 0.0-2. 0 Not Available [facility] (Lab) [address] [place], [address], 07/10/2022 04:22:38 07/10/19 23 07/09/2022 CBC W/DIF F immature granulocytes 0.5 % no define d refere nce range Not Available [facility] (Lab) [address] [facility], [place], [address], 07/10/2022 04:22:38 07/10/19 23 07/09/2022 CBC W/DIF F absolute neutrophils 6.0 10'3/ uL 1.1-6. 0 Not Available [facility] (Lab) [address] [facility], [place], [address], 07/10/2022 04:22:38 07/10/19 23 07/09/2022 CBC W/DIF F absolute lymphocytes 1.3 10'3/ uL 0.7-3. 4 Not Available [facility] (Lab) [address] [place], [address], 07/10/2022 04:22:38 07/10/19 23 07/09/2022 CBC W/DIF F absolute monocytes 0.8 10'3/ uL 0.3-1. 0 Not Available [facility] (Lab) [address] [place], [address], 07/10/2022 04:22:38 07/10/19 23 07/09/2022 CBC W/DIF F absolute eosinophils 0.1 10'3/ uL 0.0-0. 6 Not Available [facility] (Lab) [address] [place], [address], 07/10/2022 04:22:38 07/10/19 23 07/09/2022 CBC W/DIF F absolute basophils 0.0 10'3/ uL 0.0-0. 1 Not Available [facility] (Lab) [address] [facility], [place], [address], 07/10/2022 04:22:38 07/10/19 23 07/09/2022 CBC W/DIF F absolute immature granulocytes 0.0 10'3/ uL 0.00-0 .10 2022 3:10 AM: P indic ates parti al resul ts on a panel have been relea sed. Addit ional resul ts will follo w. 2022 3:10 AM: This resul t has been final verif ied. No addit ional or white ed resul ts are expec jesus. Not Available [facility] (Lab) [address] [facility], [place], [address], 07/10/2022 04:22:38 07/10/19 23 07/09/2022 URIC ACID uric acid 4.2 mg/dL 2.3-6. 6 Not Available [facility] (Lab) [address] [facility], [place], [address], 07/10/2022 04:22:38 07/10/19 23 07/09/2022 CMP(C OMPRE HENSI VE METAB OLIC PANEL ) sodium 136 mmol/ L 133-14 6 Not Available [facility] (Lab) [address] [facility], [place], [address], 07/10/2022 04:22:39 07/10/19 23 07/09/2022 CMP(C OMPRE HENSI VE METAB OLIC PANEL ) potassium 3.7 mmol/ L 3.5-5. 1 Not Available [facility] (Lab) [address] [facility], [place], [address], 07/10/2022 04:22:39 07/10/19 23 07/09/2022 CMP(C OMPRE HENSI VE METAB OLIC PANEL ) chloride 104 mmol/ L 98-107 Not Available [facility] (Lab) [address] [facility], [place], [address], 07/10/2022 04:22:39 07/10/19 23 07/09/2022 CMP(C OMPRE HENSI VE METAB OLIC PANEL ) carbon dioxide 24 mmol/ L 21-31 Not Available [facility] (Lab) [address] [facility], [place], [address], 07/10/2022 04:22:39 07/10/19 23 07/09/2022 CMP(C OMPRE HENSI VE METAB OLIC PANEL ) anion gap 8 mmol/ L 4-13 Not Available [facility] (Lab) [address] [facility], [place], [address], 07/10/2022 04:22:39 07/10/19 23 07/09/2022 CMP(C OMPRE HENSI VE METAB OLIC PANEL ) blood urea nitrogen 8 mg/dL 7-25 Not Available [facility] (Lab) [address] [facility], [place], [address], 07/10/2022 04:22:39 07/10/19 23 07/09/2022 CMP(C OMPRE HENSI VE METAB OLIC PANEL ) creatinine 0.51 mg/dL 0.60-1 .30 low Not Available [facility] (Lab) [address] [facility], [place], [address], 07/10/2022 04:22:39 07/10/19 23 07/09/2022 CMP(C OMPRE HENSI VE METAB OLIC PANEL ) egfrcr (CKD-epi 2020) >90 mL/mi n/1.7 3_m2 >=60 Not Available [facility] (Lab) [address] [facility], [place], [address], 07/10/2022 04:22:39 07/10/19 23 07/09/2022 CMP(C OMPRE HENSI VE METAB OLIC PANEL ) calcium 9.1 mg/dL 8.3-10 .5 Not Available [facility] (Lab) [address] [facility], [place], [address], 07/10/2022 04:22:39 07/10/19 23 07/09/2022 CMP(C OMPRE HENSI VE METAB OLIC PANEL ) glucose 89 mg/dL 70-100 Not Available [facility] (Lab) [address] [facility], [place], [address], 07/10/2022 04:22:39 07/10/19 23 07/09/2022 CMP(C OMPRE HENSI VE METAB OLIC PANEL ) protein, total 6.5 g/dL 6.4-8. 3 Not Available [facility] (Lab) [address] [facility], [place], [address], 07/10/2022 04:22:39 07/10/19 23 07/09/2022 CMP(C OMPRE HENSI VE METAB OLIC PANEL ) albumin 3.7 g/dL 3.5-5. 0 Not Available [facility] (Lab) [address] [facility], [place], [address], 07/10/2022 04:22:39 07/10/19 23 07/09/2022 CMP(C OMPRE HENSI VE METAB OLIC PANEL ) ALT 18 units /L 9-43 Not Available [facility] (Lab) [address] [place], [address], 07/10/2022 04:22:39 07/10/19 23 07/09/2022 CMP(C OMPRE HENSI VE METAB OLIC PANEL ) alkaline phosphatase 106 units /L 34-104 high Not Available [facility] (Lab) [address] [place], [address], 07/10/2022 04:22:39 07/10/19 23 07/09/2022 CMP(C OMPRE HENSI VE METAB OLIC PANEL ) AST 17 units /L 13-39 Not Available [facility] (Lab) [address] [place], [address], 07/10/2022 04:22:39 07/10/19 23 07/09/2022 CMP(C OMPRE HENSI VE METAB OLIC PANEL ) bilirubin, total 0.3 mg/dL 0.2-1. 2 Not Available [facility] (Lab) [address], [place], [address], 07/10/2022 04:22:39 07/17/19 23 07/16/2022 CBC W/DIF F WBC 8.1 10'3/ uL 3.6-10 .2 Not Available [facility] (Lab) [address], [place], [address], 07/17/2022 02:42:33 07/17/19 23 07/16/2022 CBC W/DIF F RBC 3.83 10'6/ uL (based on docume nted legal sex) 4.10-5 .30 low Not Available [facility] (Lab) [address], [place], [address], 07/17/2022 02:42:33 07/17/19 23 07/16/2022 CBC W/DIF F HGB 11.7 g/dL (based on docume nted legal sex) 11.9-1 5.8 low Not Available [facility] (Lab) [address], [place], [address], 07/17/2022 02:42:33 07/17/19 23 07/16/2022 CBC W/DIF F HCT 36.6 % (based on docume nted legal sex) 37.4-4 8.3 low Not Available [facility] (Lab) [address] [place], [address], 07/17/2022 02:42:33 07/17/19 23 07/16/2022 CBC W/DIF F MCV 95.6 fL 82.0-9 9.0 Not Available [facility] (Lab) [address] [place], [address], 07/17/2022 02:42:33 07/17/19 23 07/16/2022 CBC W/DIF F MCH 30.5 pg 27.0-3 3.0 Not Available [facility] (Lab) [address], [place], [address], 07/17/2022 02:42:33 07/17/19 23 07/16/2022 CBC W/DIF F MCHC 32.0 g/dL 32.0-3 6.0 Not Available [facility] (Lab) [address], [place], [address], 07/17/2022 02:42:33 07/17/19 23 07/16/2022 CBC W/DIF F RDW 13.6 % 11.0-1 5.0 Not Available [facility] (Lab) [address], [place], [address], 07/17/2022 02:42:33 07/17/19 23 07/16/2022 CBC W/DIF F plt 247 10'3/ uL 150-45 0 Not Available [facility] (Lab) [address], [place], [address], 07/17/2022 02:42:33 07/17/19 23 07/16/2022 CBC W/DIF F MPV 11.5 fL 9.8-12 .7 Not Available [facility] (Lab) [address], [place], [address], 07/17/2022 02:42:33 07/17/19 23 07/16/2022 CBC W/DIF F NRBC's 0.0 % 0 Not Available [facility] (Lab) [address], [place], [address], 07/17/2022 02:42:33 07/17/19 23 07/16/2022 CBC W/DIF F absolute NRBCs 0.0 10'3/ uL 0 Not Available [facility] (Lab) [address], [place], [address], 07/17/2022 02:42:33 07/17/19 23 07/16/2022 CBC W/DIF F neutrophils 73.0 % 37.0-7 2.0 high Not Available [facility] (Lab) [address] [facility], [place], [address], 07/17/2022 02:42:33 07/17/19 23 07/16/2022 CBC W/DIF F lymphocytes 16.1 % 16.0-4 8.0 Not Available [facility] (Lab) [address] [facility], [place], [address], 07/17/2022 02:42:33 07/17/19 23 07/16/2022 CBC W/DIF F monocytes 9.4 % 4.0-14 .0 Not Available [facility] (Lab) [address] [facility], [place], [address], 07/17/2022 02:42:33 07/17/19 23 07/16/2022 CBC W/DIF F eosinophils 0.9 % 0.0-9. 0 Not Available [facility] (Lab) [address] [facility], [place], [address], 07/17/2022 02:42:33 07/17/19 23 07/16/2022 CBC W/DIF F basophils 0.2 % 0.0-2. 0 Not Available [facility] (Lab) [address] [facility], [place], [address], 07/17/2022 02:42:33 07/17/19 23 07/16/2022 CBC W/DIF F immature granulocytes 0.4 % no define d refere nce range Not Available [facility] (Lab) [address] [place], [address], 07/17/2022 02:42:33 07/17/19 23 07/16/2022 CBC W/DIF F absolute neutrophils 5.9 10'3/ uL 1.1-6. 0 Not Available [facility] (Lab) [address] [facility], [place], [address], 07/17/2022 02:42:33 07/17/19 23 07/16/2022 CBC W/DIF F absolute lymphocytes 1.3 10'3/ uL 0.7-3. 4 Not Available [facility] (Lab) [address] [facility], [place], [address], 07/17/2022 02:42:33 07/17/19 23 07/16/2022 CBC W/DIF F absolute monocytes 0.8 10'3/ uL 0.3-1. 0 Not Available [facility] (Lab) [address] [facility], [place], [address], 07/17/2022 02:42:33 07/17/19 23 07/16/2022 CBC W/DIF F absolute eosinophils 0.1 10'3/ uL 0.0-0. 6 Not Available [facility] (Lab) [address] [facility], [place], [address], 07/17/2022 02:42:33 07/17/19 23 07/16/2022 CBC W/DIF F absolute basophils 0.0 10'3/ uL 0.0-0. 1 Not Available [facility] (Lab) [address] [facility], [place], [address], 07/17/2022 02:42:33 07/17/19 23 07/16/2022 CBC W/DIF F absolute immature granulocytes 0.0 10'3/ uL 0.00-0 .10 023 1:26 AM: P indic ates parti al resul ts on a panel have been relea sed. Addit ional resul ts will follo w. 023 1:26 AM: This resul t has been final verif ied. No addit ional or white ed resul ts are expec jesus. Not Available [facility] (Lab) [address] [facility], [place], [address], 07/17/2022 02:42:33 07/17/19 23 07/16/2022 URIC ACID uric acid 4.2 mg/dL 2.3-6. 6 Not Available [facility] (Lab) [address] [facility], [place], [address], 07/17/2022 02:42:34 07/17/19 23 07/16/2022 CMP(C OMPRE HENSI VE METAB OLIC PANEL ) sodium 140 mmol/ L 133-14 6 Not Available [facility] (Lab) [address] [facility], [place], [address], 07/17/2022 02:42:34 07/17/19 23 07/16/2022 CMP(C OMPRE HENSI VE METAB OLIC PANEL ) potassium 4.3 mmol/ L 3.5-5. 1 Not Available [facility] (Lab) [address], [place], [address], 07/17/2022 02:42:34 07/17/19 23 07/16/2022 CMP(C OMPRE HENSI VE METAB OLIC PANEL ) chloride 106 mmol/ L 98-107 Not Available [facility] (Lab) [address], [place], [address], 07/17/2022 02:42:34 07/17/19 23 07/16/2022 CMP(C OMPRE HENSI VE METAB OLIC PANEL ) carbon dioxide 26 mmol/ L 21-31 Not Available [facility] (Lab) [address], [place], [address], 07/17/2022 02:42:34 07/17/19 23 07/16/2022 CMP(C OMPRE HENSI VE METAB OLIC PANEL ) anion gap 8 mmol/ L 4-13 Not Available [facility] (Lab) [address], [place], [address], 07/17/2022 02:42:34 07/17/19 23 07/16/2022 CMP(C OMPRE HENSI VE METAB OLIC PANEL ) blood urea nitrogen 7 mg/dL 7-25 Not Available [facility] (Lab) [address], [place], [address], 07/17/2022 02:42:34 07/17/19 23 07/16/2022 CMP(C OMPRE HENSI VE METAB OLIC PANEL ) creatinine 0.59 mg/dL 0.60-1 .30 low Not Available [facility] (Lab) [address], [place], [address], 07/17/2022 02:42:34 07/17/19 23 07/16/2022 CMP(C OMPRE HENSI VE METAB OLIC PANEL ) egfrcr (CKD-epi 2020) >90 mL/mi n/1.7 3_m2 >=60 Not Available [facility] (Lab) [address], [place], [address], 07/17/2022 02:42:34 07/17/19 23 07/16/2022 CMP(C OMPRE HENSI VE METAB OLIC PANEL ) calcium 9.6 mg/dL 8.3-10 .5 Not Available [facility] (Lab) [address], [place], [address], 07/17/2022 02:42:34 07/17/19 23 07/16/2022 CMP(C OMPRE HENSI VE METAB OLIC PANEL ) glucose 73 mg/dL 70-100 Not Available [facility] (Lab) [address], [place], [address], 07/17/2022 02:42:34 07/17/19 23 07/16/2022 CMP(C OMPRE HENSI VE METAB OLIC PANEL ) protein, total 6.5 g/dL 6.4-8. 3 Not Available [facility] (Lab) [address], [place], [address], 07/17/2022 02:42:34 07/17/19 23 07/16/2022 CMP(C OMPRE HENSI VE METAB OLIC PANEL ) albumin 3.7 g/dL 3.5-5. 0 Not Available [facility] (Lab) [address], [place], [address], 07/17/2022 02:42:34 07/17/19 23 07/16/2022 CMP(C OMPRE HENSI VE METAB OLIC PANEL ) ALT 17 units /L 9-43 Not Available [facility] (Lab) [address], [place], [address], 07/17/2022 02:42:34 07/17/19 23 07/16/2022 CMP(C OMPRE HENSI VE METAB OLIC PANEL ) alkaline phosphatase 111 units /L 34-104 high Not Available [facility] (Lab) [address], [place], [address], 07/17/2022 02:42:34 07/17/19 23 07/16/2022 CMP(C OMPRE HENSI VE METAB OLIC PANEL ) AST 17 units /L 13-39 Not Available [facility] (Lab) [address], [place], [address], 07/17/2022 02:42:34 07/17/19 23 07/16/2022 CMP(C OMPRE HENSI VE METAB OLIC PANEL ) bilirubin, total 0.3 mg/dL 0.2-1. 2 Not Available [facility] (Lab) [address], [place], [address], 07/17/2022 02:42:34 07/22/19 23 07/21/2022 CBC W/DIF F WBC 8.6 10'3/ uL 3.6-10 .2 Not Available [facility] (Lab) [address], [place], [address], 07/22/2022 06:14:25 07/22/19 23 07/21/2022 CBC W/DIF F RBC 3.79 10'6/ uL (based on docume nted legal sex) 4.10-5 .30 low Not Available [facility] (Lab) [address], [place], [address], 07/22/2022 06:14:25 07/22/1907/21/2022 CBC W/DIF F HGB 11.7 g/dL (based on docume nted legal sex) 11.9-1 5.8 low Not Available [facility] (Lab) [address], [place], [address], 07/22/2022 06:14:25 07/22/1907/21/2022 CBC W/DIF F HCT 35.2 % (based on docume nted legal sex) 37.4-4 8.3 low Not Available [facility] (Lab) [address], [place], [address], 07/22/2022 06:14:25 07/22/1907/21/2022 CBC W/DIF F MCV 92.9 fL 82.0-9 9.0 Not Available [facility] (Lab) [address], [place], [address], 07/22/2022 06:14:25 07/22/1907/21/2022 CBC W/DIF F MCH 30.9 pg 27.0-3 3.0 Not Available [facility] (Lab) [address], [place], [address], 07/22/2022 06:14:25 07/22/1907/21/2022 CBC W/DIF F MCHC 33.2 g/dL 32.0-3 6.0 Not Available [facility] (Lab) [address], [place], [address], 07/22/2022 06:14:25 07/22/1907/21/2022 CBC W/DIF F RDW 13.3 % 11.0-1 5.0 Not Available [facility] (Lab) [address], [place], [address], 07/22/2022 06:14:25 07/22/1907/21/2022 CBC W/DIF F plt 255 10'3/ uL 150-45 0 Not Available [facility] (Lab) [address], [place], [address], 07/22/2022 06:14:25 07/22/1907/21/2022 CBC W/DIF F MPV 11.8 fL 9.8-12 .7 Not Available [facility] (Lab) [address], [place], [address], 07/22/2022 06:14:25 07/22/1907/21/2022 CBC W/DIF F NRBC's 0.0 % 0 Not Available [facility] (Lab) [address], [place], [address], 07/22/2022 06:14:25 07/22/1907/21/2022 CBC W/DIF F absolute NRBCs 0.0 10'3/ uL 0 Not Available [facility] (Lab) [address], [place], [address], 07/22/2022 06:14:25 07/22/1907/21/2022 CBC W/DIF F neutrophils 73.0 % 37.0-7 2.0 high Not Available [facility] (Lab) [address], [place], [address], 07/22/2022 06:14:25 07/22/1907/21/2022 CBC W/DIF F lymphocytes 16.6 % 16.0-4 8.0 Not Available [facility] (Lab) [address], [place], [address], 07/22/2022 06:14:25 07/22/1907/21/2022 CBC W/DIF F monocytes 9.2 % 4.0-14 .0 Not Available [facility] (Lab) [address], [place], [address], 07/22/2022 06:14:25 07/22/1907/21/2022 CBC W/DIF F eosinophils 0.6 % 0.0-9. 0 Not Available [facility] (Lab) [address] [place], [address], 07/22/2022 06:14:25 07/22/1907/21/2022 CBC W/DIF F basophils 0.3 % 0.0-2. 0 Not Available [facility] (Lab) [address], [place], [address], 07/22/2022 06:14:25 07/22/1907/21/2022 CBC W/DIF F immature granulocytes 0.3 % no define d refere nce range Not Available [facility] (Lab) [address], [place], [address], 07/22/2022 06:14:25 07/22/19 23 07/21/2022 CBC W/DIF F absolute neutrophils 6.3 10'3/ uL 1.1-6. 0 high Not Available [facility] (Lab) [address], [place], [address], 07/22/2022 06:14:25 07/22/1907/21/2022 CBC W/DIF F absolute lymphocytes 1.4 10'3/ uL 0.7-3. 4 Not Available [facility] (Lab) [address] [place], [address], 07/22/2022 06:14:25 07/22/19 23 07/21/2022 CBC W/DIF F absolute monocytes 0.8 10'3/ uL 0.3-1. 0 Not Available [facility] (Lab) [address] [place], [address], 07/22/2022 06:14:25 07/22/19 23 07/21/2022 CBC W/DIF F absolute eosinophils 0.1 10'3/ uL 0.0-0. 6 Not Available [facility] (Lab) [address] [place], [address], 07/22/2022 06:14:25 07/22/19 23 07/21/2022 CBC W/DIF F absolute basophils 0.0 10'3/ uL 0.0-0. 1 Not Available [facility] (Lab) [address], [place], [address], 07/22/2022 06:14:25 07/22/19 23 07/21/2022 CBC W/DIF F absolute immature granulocytes 0.0 10'3/ uL 0.00-0 .10 023 4:54 AM: P indic ates parti al resul ts on a panel have been relea sed. Addit ional resul ts will follo w. 023 4:54 AM: This resul t has been final verif ied. No addit ional or white ed resul ts are expec jesus. Not Available [facility] (Lab) [address], [place], [address], 07/22/2022 06:14:25 07/22/19 23 07/21/2022 URIC ACID uric acid 5.1 mg/dL 2.3-6. 6 Not Available [facility] (Lab) [address], [place], [address], 07/22/2022 06:14:25 07/22/19 23 07/21/2022 CMP(C OMPRE HENSI VE METAB OLIC PANEL ) sodium 139 mmol/ L 133-14 6 Not Available [facility] (Lab) [address], [place], [address], 07/22/2022 06:14:26 07/22/19 23 07/21/2022 CMP(C OMPRE HENSI VE METAB OLIC PANEL ) potassium 4.1 mmol/ L 3.5-5. 1 Not Available [facility] (Lab) [address], [place], [address], 07/22/2022 06:14:26 07/22/19 23 07/21/2022 CMP(C OMPRE HENSI VE METAB OLIC PANEL ) chloride 104 mmol/ L 98-107 Not Available [facility] (Lab) [address], [place], [address], 07/22/2022 06:14:26 07/22/19 23 07/21/2022 CMP(C OMPRE HENSI VE METAB OLIC PANEL ) carbon dioxide 26 mmol/ L 21-31 Not Available [facility] (Lab) [address], [place], [address], 07/22/2022 06:14:26 07/22/19 23 07/21/2022 CMP(C OMPRE HENSI VE METAB OLIC PANEL ) anion gap 9 mmol/ L 4-13 Not Available [facility] (Lab) [address], [place], [address], 07/22/2022 06:14:26 07/22/19 23 07/21/2022 CMP(C OMPRE HENSI VE METAB OLIC PANEL ) blood urea nitrogen 10 mg/dL 7-25 Not Available [facility] (Lab) [address], [place], [address], 07/22/2022 06:14:26 07/22/19 23 07/21/2022 CMP(C OMPRE HENSI VE METAB OLIC PANEL ) creatinine 0.67 mg/dL 0.60-1 .30 Not Available [facility] (Lab) [address], [place], [address], 07/22/2022 06:14:26 07/22/19 23 07/21/2022 CMP(C OMPRE HENSI VE METAB OLIC PANEL ) egfrcr (CKD-epi 2020) >90 mL/mi n/1.7 3_m2 >=60 Not Available [facility] (Lab) [address], [place], [address], 07/22/2022 06:14:26 07/22/19 23 07/21/2022 CMP(C OMPRE HENSI VE METAB OLIC PANEL ) calcium 9.6 mg/dL 8.3-10 .5 Not Available [facility] (Lab) [address], [place], [address], 07/22/2022 06:14:26 07/22/19 23 07/21/2022 CMP(C OMPRE HENSI VE METAB OLIC PANEL ) glucose 91 mg/dL 70-100 Not Available [facility] (Lab) [address], [place], [address], 07/22/2022 06:14:26 07/22/19 23 07/21/2022 CMP(C OMPRE HENSI VE METAB OLIC PANEL ) protein, total 6.4 g/dL 6.4-8. 3 Not Available [facility] (Lab) [address], [place], [address], 07/22/2022 06:14:26 07/22/19 23 07/21/2022 CMP(C OMPRE HENSI VE METAB OLIC PANEL ) albumin 3.9 g/dL 3.5-5. 0 Not Available [facility] (Lab) [address], [place], [address], 07/22/2022 06:14:26 07/22/19 23 07/21/2022 CMP(C OMPRE HENSI VE METAB OLIC PANEL ) ALT 16 units /L 9-43 Not Available [facility] (Lab) [address] [place], [address], 07/22/2022 06:14:26 07/22/19 23 07/21/2022 CMP(C OMPRE HENSI VE METAB OLIC PANEL ) alkaline phosphatase 112 units /L 34-104 high Not Available [facility] (Lab) [address] [place], [address], 07/22/2022 06:14:26 07/22/19 23 07/21/2022 CMP(C OMPRE HENSI VE METAB OLIC PANEL ) AST 17 units /L 13-39 Not Available [facility] (Lab) [address], [place], [address], 07/22/2022 06:14:26 07/22/19 23 07/21/2022 CMP(C OMPRE HENSI VE METAB OLIC PANEL ) bilirubin, total 0.3 mg/dL 0.2-1. 2 Not Available [facility] (Lab) [address], [place], [address], 07/22/2022 06:14:26 02/24/20 23 02/23/2023 VAGIN ITIS/ VAGIN OSIS, DNA PROBE jarret sp. detection, direct probe Negati ve negati ve Not Available [facility] (Lab) [address], [place], [address], 02/24/2023 12:47:56 02/24/20 23 02/23/2023 VAGIN ITIS/ VAGIN OSIS, DNA PROBE gardnerella vag. detection, direct probe Positi ve negati ve abnormal Not Available [facility] (Lab) [address], [place], [address], 02/24/2023 12:47:56 02/24/20 23 02/23/2023 VAGIN ITIS/ VAGIN OSIS, DNA PROBE trichomonas vag. detection, direct probe Negati ve negati ve Not Available [facility] (Lab) [address], [place], [address], 02/24/2023 12:47:56 06/15/19 25 06/15/2024 IMAGE GUIDE D PAP AND HPV REGAR DLESS image guided Pap, HPV regardless of Pap result SEE RESULT S BELOW CASE REPOR T: Cytol ogy Gynec ologi nhi Repor t Case: [id number] Autho rizin g Provi elan: Jose Valadez MD Colle cted: 06/15 1602 Order ing Locat ion: [place] [facility] Recei cheri: 06/18 0849 First Scree n: Enrique Anaya, [place] Patho logis t: Duke Fischer rd, MD Speci men: Yoanna ferrer Pap - Image d, Cervi x STATE MENT OF ADEQU ACY: Satis facto ry for evalu ation Trans forma tion zone compo nent prese nt ----- ----- ----- ----- ----- ----- ----- ----- ----- ----- ----- ----- ----- ----- ----- ----- ----- ---- FINAL DIAGN OSIS: Negat reg for Intra epith elial Lesio n or Sherif martell (NIL) . Elect alcon sheikh d by Duke Fischer MD on 025 at 1243 [employer]PUT[employer] TE[employer] ----- ----- ----- ----- ----- ----- ----- ----- ----- ----- ----- ----- ----- ----- ----- ----- ----- ---- HPV RESUL TS: HPV mRNA E6/E7 : No HPV mRNA Detec jesus NOTE: This high risk HPV mRNA assay detec ts fourt een high- risk HPV types (16, 18, 31, 33, 35, 39, 45, 51, 52, 56, 58, 59, 66, 68) witho ut diffe renti ation . COMME NT: This speci men was revie wed by a Cytot echno logis t and/o r Patho logis t (as indic ated in this repor t) after evalu ation using the Thinp rep Imagi ng Syste m. CLINI NHI INFOR MATIO N: Menst rual Statu s: LMP (if appli cable ): Clini nhi Histo ry/Pr eviou s Pap: Type of Neopl spencer (if appli cable ): Signi jeanette t Clini nhi Findi ngs: Other Histo ry: Hormo kim (if appli cable ): PAP EDUCA RICHARD L NOTE: The Pap Test is a scree nabil test with an inher ent false negat reg rate. Liqui d-bas ed sampl ing may decre ase, but will not elimi austyn, false negat reg resul ts. A negat reg resul t does not precl ude the prese nce and/o r devel opmen t of disea se, since the prese nce of abnor mal cells in the sampl e depen ds on the locat ion of the lesio n and sampl ing techn ique. Radha nued regul ar scree nabil is the best metho d of cance r preve ntion . If repor jesus cytol ogic findi ng do not corre late with physi nhi and/o r histo rical findi ngs, furth er inves tigat ion is recom mik d, as clini andra rinku nted. Not Available [facility] (Lab) [address], [place], [address], 06/20/2024 13:46:55 07/03/19 23 07/02/2022 US, obste tric, bioph ysica l profi le + non-s tress test No observ ation record ed. [facility] [address], [place], [address], 07/02/2022 17:10:27 07/03/19 23 07/02/2022 US, obste tric, bioph ysica l profi le + non-s tress test No observ ation record ed. [email or web address] [address], [place], [address], 07/05/2022 08:17:46 07/03/19 23 07/02/2022 non-s tress test No observ ation record ed. [email or web address] [facility] [address], [place], [address], 07/02/2022 12:01:35 07/10/19 23 07/09/2022 non-s tress test No observ ation record ed. [email or web address] [facility] [address], [place], [address], 07/09/2022 16:07:41 07/10/19 23 07/09/2022 US, obste tric, follo w-up No observ ation record ed. [email or web address] [address], [place], [address], 07/12/2022 11:20:25 07/10/19 23 07/09/2022 US, obste tric, bioph ysica l profi le + non-s tress test No observ ation record ed. [email or web address], [place], [address], 07/09/2022 17:20:08 07/17/19 23 07/16/2022 non-s tress test No observ ation record ed. [email or web address] [facility] [address], [place], [address], 07/17/2022 15:04:32 07/17/19 23 07/16/2022 US, obste tric, follo w-up No observ ation record ed. [email or web address], [place], [address], 07/16/2022 16:01:03 07/17/19 23 07/16/2022 US, obste tric, bioph ysica l profi le + non-s tress test No observ ation record ed. [email or web address], [place], [address], 07/16/2022 16:00:51 07/17/19 23 07/16/2022 US, obste tric, follo w-up No observ ation record ed. [email or web address] [address], [place], [address], 07/19/2022 21:58:29 04/05/07/21/2022 US, obste tric, follo w-up No observ ation record ed. [email or web address] [address], [place], [address], 07/21/2022 18:26:57 07/22/19 23 07/21/2022 US, obste tric, bioph ysica l profi le + non-s tress test No observ ation record ed. [email or web address] [facility] [address], [place], [address], 07/21/2022 18:36:24 07/22/19 23 07/21/2022 non-s tress test No observ ation record ed. [email or web address] [facility] [address], [place], [address], 07/21/2022 18:35:35 07/31/19 23 07/30/2022 non-s tress test No observ ation record ed. [email or web address] [facility] [address], [place], [address], 07/31/2022 19:42:07 07/31/19 23 07/30/2022 US, obste tric, bioph ysica l profi le + non-s tress test No observ ation record ed. [email or web address] [facility] [address], [place], [address], 07/30/2022 18:25:05 07/31/19 23 07/30/2022 US, obste tric, bioph ysica l profi le + non-s tress test No observ ation record ed. [email or web address] [address], [place], [address], 08/02/2022 08:08:52 Result Notes None recorded. Problems Name Problem SNOMED Code Status Onset Date Resolution Date Notes Provider Name and Address Organization Details Recorded Time Anxiety 97362565 Completed stable, untxed Britaney Ivana null, [facility] 3 17:09:17 Irritable bowel syndrome 30467463 Completed stable - constipat ion Johanne marcano [facility] 3 17:09:17 97838039 Completed 202108/02/2022 Johanne marcano [facility] 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 3 17:09:17 Problem Notes None recorded. Procedures Surgical History Date Name Laterality Status Provider Name and Address Organization Details Recorded Time 2 Date of Last Pap Smear completed [facility] 08/07/2021 16:07:44 4 Colposcopy completed [facility] 08/07/2021 17:59:46 Imaging Results None recorded. Procedure Notes None recorded. Medical Equipment None Reported. Allergies No known drug allergies Medications Name Sig Start Date Stop Date Status Note LastModified by Organization Details LastModified Time Diflucan 150 mg tablet take 1 tablet (150MG) by oral route once 06/05 completed Prescrib ed Elsewher e: No [facility] By: malika carolina DateTime : 05/03/19 14 04:42:00 PM Not Available Not Available Not Available metronida zole 500 mg tablet TAKE 1 TABLET BY MOUTH EVERY 12 HOURS FOR 7 DAYS 06/15 completed Not Available Not Available Not Available Reglan 10 mg tablet Take 1 tablet 4 times a day by oral route. 09/01 completed Not Available Not Available Not Available nystatin- triamcino lone 100,000 unit/gram -0.1 % topical ointment APPLY TOPICALL Y TO THE AFFECTED AREA TWICE DAILY 02/23 completed Not Available Not Available Not Available Microgest in FE 05/07 (28) 1 mg-20 mcg (21)/75 mg (7) tablet take 1 tablet by oral route every day 02/12 completed Prescrib ed Elsewher e: No Locat ion: [facility] odify By: toney carolina DateTime : 02/13/20 16 09:30:00 AM Not Available Not Available Not Available NuvaRing 0.12 mg-0.015 mg/24 hr vaginal insert 1 vaginal ring by vaginal route every month leave in place for 3 weeks, remove for 1 week 06/05 completed Prescrib ed Elsewher e: No [facility] By: eleonora Rios [email or web address] DateTime : 06/05/19 15 01:00:00 PM Not Available Not Available Not Available Wellbutri n XL 300 mg 24 hr tablet, extended release take 1 tablet by oral route every day 08/07 completed Prescrib ed Elsewher e: No Locat ion: [facility] odify By: eleonora Rios nter DateTime : 09/16/19 18 03:30:00 PM Not Available Not Available Not Available Vitamin 09/01 completed Not Available Not Available Not Available Lo Loestrin Fe 1 mg-10 mcg (24)/10 mcg (2) tablet take 1 tablet by oral route every day 09/20 completed Prescrib ed Elsewher e: No Locat ion: [facility] odify By: lisa gallegosuntsydney DateTime : 08/29/19 16 01:00:00 PM Not Available Not Available Not Available Fioricet 50 mg-300 mg-40 mg capsule Take 1 capsule every 4 hours by oral route. 09/01 completed Not Available Not Available Not Available butalbita l 50 mg-acetam inophen 300 mg-caffei ne 40 mg-codein e 30 mg cap 09/01 completed Not Available Not Available Not Available ID NOW COVID-19 Test Kit TEST DIRECTED . 09/01 completed Not Available Not Available Not Available Vitals Date Recorded Body height Body mass index (BMI) Body weight Systolic And Diastolic Provider Name and Address Organization Details Last Updated DateTime 06/15/2024 167.64 cm 23.2 kg/m2 09818.3 g 120/74 mm[Hg] Deirdrerachelle Munozen [facility] 06/15/2024 16:30:31 Date Recorded Body height Body mass index (BMI) Body weight Systolic And Diastolic Provider Name and Address Organization Details Last Updated DateTime 07/30/2022 167.64 cm 28.1 kg/m2 17631.072 38 g 124/81 mm[Hg] Katlyn Castellano [facility] 07/30/2022 16:06:54 Date Recorded Body height Body mass index (BMI) Body weight Systolic And Diastolic Provider Name and Address Organization Details Last Updated DateTime 09/01/2022 167.64 cm 24 kg/m2 73138.26 g 111/80 mm[Hg] Katlyn Castellano [facility] 09/01/2022 15:09:10 Date Recorded Body height Body mass index (BMI) Body weight Systolic And Diastolic Provider Name and Address Organization Details Last Updated DateTime 02/23/2023 167.64 cm 23.7 kg/m2 36268.08 g 104/70 mm[Hg] Claudia Walker [facility] 02/23/2023 15:54:48 Social History Question Answer Notes LastModified by Organizat ion Details LastModified Time Tobacco Smoking Status Never Smoker Katlyn Castellano [facility], [facility] 05/21/2022 14:26:44 If You Are , What Was Your Level Of Alcohol Consumption Prior To ? Occasional [email or web address] Information not available 05/21/2022 Are You Blind Or Do You Have Difficulty Seeing? No [email or web address] Information n ot available 12/25/2021 What Is Your Level Of Caffeine Consumption? Moderate [email or web address] Information not available 05/21/2022 How Much Tobacco Do You Chew? None [email or web address] Information not available 05/21/2022 In The 14 Days Before Symptom Onset, Have You Had Close Contact With A Laboratory-confirm ed COVID-19 While That Case Was Ill? No [email or web address] Information n ot available 12/25/2021 In The 14 Days Before Symptom Onset, Have You Had Close Contact With A Person Who Is Under Investigation For COVID-19 While That Person Was Ill? No Information not available 12/25/2021 Have You Been To An Area Known To Be High Risk For COVID-19? No [email or web address] Information not available 12/25/2021 Are You Deaf Or Do You Have Serious Difficulty Hearing? No [email or web address] Information not available 12/25/2021 What Type Of Diet Are You Following? REGULAR [email or web address] Information n ot available 12/25/2021 What Is The Highest Grade Or Level Of School You Have Completed Or The Highest Degree You Have Received? [id number] [email or web address] Information not available 05/21/2022 Do You Use Protection During Sex? No [email or web address] Information not available 05/21/2022 Do You Use Your Seat Belt Or Car Seat Routinely? Yes [email or web address] Information not available 12/25/2021 Do You Have Smoke And Carbon Monoxide Detectors In Your Home? Yes [email or web address] Information not available 12/25/2021 How Much Tobacco Do You Smoke? No [email or web address] Information not available 05/21/2022 Do You Use Sunscreen Routinely? Yes [email or web address] Information not available 12/25/2021 Has Tobacco Cessation Counseling Been Provided? No [email or web address] Information not available 05/21/2022 Have You Used IV Drugs? No [email or web address] Information not available 05/21/2022 Do You Have Difficulty Walking Or Climbing Stairs? No [email or web address] Information not available 05/21/2022 Sex: Unknown Functional Status Question Answer Note LastModified by Organizat ion Details LastModified Time Do you use any illicit or recreational drugs? No [email or web address] Information not available 12/25/2021 Do you or have you ever used any other forms of tobacco or nicotine? No [email or web address] Information not available 05/21/2022 What is your level of alcohol consumption? None [email or web address] Information not available 12/25/2021 Are you able to walk independently without assistance or assistive devices? YESWOREST [email or web address] Information not available 12/25/2021 Are you able to care for yourself independently? 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 No [email or web address] Information not available 05/21/2022 What is your exercise level? Occasional [email or web address] Information not available 12/25/2021 Mental Status Question Answer Note LastModified by Organization D etails LastModified Time Do you feel stressed (tense, restless, nervous, or anxious, or unable to sleep at night)? [id number] [email or web address] Information not available 12/25/2021 Family History Relationship Description Onset Age of this Age Resolved Age Notes LastModified by Organization Details LastModified Time Paternal Grandmother Malignant neoplasm of colon 70 Not available 05/21 14:26:43 Paternal Grandmother Diabetes mellitus [email or web address] Not available 12/25 09:53:08 Paternal Grandmother Heart disease [email or web address] Not available 12/25 09:53:08 Paternal Grandmother Hypertensive disorder [email or web address] Not available 12/25 09:53:08 Father Heart disease Not available 12/25 09:53:08 Father Hypertensive disorder [email or web address] Not available 12/25 09:53:08 Mother Disorder of thyroid gland [email or web address] Not available 12/25 09:53:08 Maternal Aunt Cyst of ovary [email or web address] Not available 05/21 14:26:43 Maternal Grandmother Cyst of ovary [email or web address] Not available 05/21 14:26:43 Medical History Condition Response Allergies (Food, seasonal, environmental ) N Other Y Breast Cancer N Drug/Latex Allergies/Reactions N Blood Transfusion N Dermatologic Disorders N Lung Disease N Defects or Inherited Disease N Breast Problem N Gestational Diabetes N Hematologic disorders N Anesthesia Complications N History of STI Y Deep Vein Thrombosis N Polycystic ovary syndrome N Anxiety Disorder Y Autoimmune disease N Arthritis N Infertility N Polyps N Acid Reflux (GERD) N History of abnormal pap Y Cancer N Stroke N Varicosities N Neurologic/Epilepsy N Endometriosis N High Cholesterol N Headaches N Fibromyalgia N Kidney Disease N Heart Problems N Kidney or Bladder Problems N Thyroid Problems N GI Problems Y Eating Disorder N Anemia N Art (IVF or FET) N Psychiatric Illness N Ovarian Cancer N Diabetes N Pulmonary (TB, Asthma) N Hepatitis/Liver Disease N No Past Medical History N Eczema N Urinary Tract Infection N Abuse/Domestic Violence N Asthma N Trauma/Violence N Depression/ depression Y Heart Disease N Pre-Eclampsia N Hypertension N Osteoporosis N Thrombophilias N Gynecological History Statement/Question Response Abnormal Pap Y Flow Moderate Date of Last Mammogram Date of LMP 05/07/2024 STIs/STDs Y Colposcopy Duration of Flow (days) 5 Current Control Method None Frequency of Cycle (Q days) 28 Sexually Active? Y Date of DEXA bone scan Date of Last Pap Smear 08/07/2021 LMP Approximate Obstetrics History GPAL:G 1 P 1 0 0 1 Type Value Full Term 1 Living 1 Total 1 Past Encounters Encounter ID Performer Location Encounter Start Date Encounter Closed Date Diagnosis/Indication Diagnosis SNOMED-CT Code Diagnosis ICD10 Code Diagnosis IMO Codes Diagnosis Note [id number] Philomena Sifuentes CNM [facility] [address],[place] [address] 08/07/2021 15:21:49 08/07/2021 17:22:55 Gynecologic examination 84619568 Z01.419 Pain in pelvis 39935352 R10.2 pelvic floor pt f/u after consider appt with CF [id number] James Hartley MD [facility] [address],[place] [address] 12/25/2021 09:21:05 12/25/2021 10:30:54 [id number] Philomena Sifuentes CNM [facility] [address],[place] [address] 12/25/2021 09:24:22 12/25/2021 11:05:54 test positive 904297766 Z32.01 Amenorrhea 92883849 N91. 2 reviewed office, precaution s, folder, plan new ob and first look at 12 weeks, plans NIPS and carrier [id number] James Hartley MD [facility] [address],[place] [address] 01/14/2022 14:09:52 01/15/2022 14:50:08 screening 270371795 Z36.82 [id number] James Hartley MD [facility] [address],[place] [address] 01/14/2022 14:13:15 01/15/2022 14:50:37 Routine care 363005409 Z34.01 [id number] [facility] [address],[place] [address] 02/12/2022 12:36:43 02/12/2022 13:38:26 Routine care 655874635 Z34.92 Migraine 57462665 G43.90 9 [id number] James Hartley MD [facility] [address],[place] [address] 03/17/2022 14:50:19 03/17/2022 16:20:57 screening 782714116 Z36.3 [id number] [facility] [address],[place] [address] 03/17/2022 14:50:45 03/17/2022 16:49:03 Routine care 612398905 Z34.92 Migraine 33394451 G43.90 9 [id number] [facility] [address],[place] [address] 04/16/2022 11:36:45 04/16/2022 12:56:58 Routine care 054603417 Z34.92 [id number] James Hartley MD [facility] [address],[place] [address] 05/07/2022 10:41:35 05/07/2022 14:39:54 Uterine size for dates discrepancy 838897496 O26.849 Z3A.28 [id number] [facility] [address],[place] [address] 05/07/2022 10:42:18 05/07/2022 12:05:35 Routine care 873668569 Z34.92 [id number] Philomena Sifuentes [facility] [address],[place] [address] 05/21/2022 14:14:34 05/21/2022 14:44:20 Routine care 171023138 Z34.92 [id number] Philomena Sifuentes [facility] [address],[place] [address] 06/04/2022 14:04:37 06/04/2022 15:04:29 Routine care 155572592 Z34.92 [id number] James Hartley MD [facility] [address],[place] [address] 06/18/2022 14:27:44 06/18/2022 15:57:11 Gestational proteinuria 09037464 O12.13 [id number] James Hartley MD [facility] [address],[place] [address] 06/18/2022 14:28:13 06/18/2022 15:09:27 Mild pre-eclampsia 76204733 O14.03 Z3A.34 [id number] Philomena Sifuentes [facility] [address],[place] [address] 06/18/2022 14:28:28 06/18/2022 15:58:28 Routine care 394114273 Z34.92 [id number] James Hartley MD [facility] [address],[place] [address] 06/25/2022 15:22:30 06/25/2022 16:57:50 Proteinuria 22761492 R80.9 [id number] MD Jarocho Johnson [address],[place] [address] 06/25/2022 15:33:54 06/25/2022 16:57:18 Mild pre-eclampsia 17615392 O14.03 Z3A.35 [id number] Philomena Sifuentes CNM [facility] [address],[place] [address] 06/25/2022 15:34:28 06/25/2022 16:57:11 Routine care 220455951 Z34.92 [id number] James Hartley MD [facility] [address],[place] [address] 07/02/2022 10:52:05 07/02/2022 11:24:41 Mild pre-eclampsia 32053379 O14.03 Z3A.36 [id number] James Hartley MD [facility] [address],[place] [address] 07/02/2022 10:53:18 07/02/2022 12:47:35 Gestational proteinuria 67704666 O12.13 [id number] Philomena Sifuentes CNM [facility] [address],[place] [address] 07/02/2022 10:53:34 07/02/2022 11:42:48 Routine care 274839473 Z34.92 [id number] James Hartley MD [facility] [address],[place] [address] 07/09/2022 15:27:12 07/09/2022 16:16:00 Gestational proteinuria 16248086 O12.13 [id number] James Hartley MD [facility] [address],[place] [address] 07/09/2022 15:28:08 07/10/2022 11:50:23 Mild pre-eclampsia 77721074 O14.03 Z3A.37 [id number] Philomena Sifuentes CNM [facility] [address],[place] [address] 07/09/2022 15:28:38 07/12/2022 16:18:15 Routine care 869668193 Z34.92 [id number] MD Jarocho Johnson [address],[place] [address] 07/16/2022 14:32:59 07/16/2022 15:26:05 Gestational proteinuria 76243714 O12.13 [id number] James Hartley MD [facility] [address],[place] [address] 07/16/2022 14:33:20 07/16/2022 15:56:00 Mild pre-eclampsia 00276936 O14.03 Z3A.38 [id number] Philomena Sifuentes [facility] [address],[place] [address] 07/16/2022 14:33:41 07/16/2022 16:08:25 Routine care 958092632 Z34.92 [id number] James Hartley MD [facility] [address],[place] [address] 07/21/2022 16:55:19 07/22/2022 10:47:53 Gestational proteinuria 99704060 O12.13 Z3A.38 [id number] James Hartley MD [facility] [address],[place] [address] 07/21/2022 16:56:09 07/21/2022 18:31:22 Mild pre-eclampsia 92982146 O14.03 Z3A.38 [id number] Philomena Sifuentes [facility] [address],[place] [address] 07/21/2022 16:56:27 07/21/2022 18:17:55 Routine care 580404631 Z34.92 [id number] MD Jarocho Johnson [address],[place] [address] 07/30/2022 15:15:36 07/30/2022 16:16:19 Proteinuria 87429862 R80.9 [id number] MD Jarocho Johnson [address],[place] [address] 07/30/2022 15:16:30 07/30/2022 16:56:56 Mild pre-eclampsia 85690525 O14.03 O48.0 Z3A.40 [id number] [facility] [address],[place] [address] 07/30/2022 15:17:01 07/30/2022 16:38:38 -induced hypertension 20727316 O13.9 Routine an tenatal care 475638199 Z34.92 [id number] [facility] [address],[place] [address] 09/01/2022 15:00:23 09/01/2022 15:28:09 care 013455539 Z39.2 Candidiasis of vagina 72 966576 B37.31 [id number] GRUPO Downey [facility] [address],[place] [address] 02/23/2023 15:34:11 02/23/2023 17:26:33 Vaginitis 93739589 N76.0 suspect BVvaginiti s panel sentSTI testing declinedrx sent, r/b/a reviewedvu lvar care guidelines discussed Hematochezia 206233843 K 92.1 recommend GI consultpre cautions discussedi ncrease fiber/wate r intake, stool softenerre ferral placed, encouraged to schedule Time spent in visit is a total of 30 mins with at least 50% of visit consisting of counseling and review of plan of care. [id number] AWAIS MAY MD [facility] [address],[place] [address] 06/15/2024 16:17:00 06/15/2024 17:20:00 Dyspareunia 83694526 N94.10 Gynecologi c examination 41304542 Z01.419 Well woman care- Cervical cancer screening: Pap smear obtained today, will follow up on the results with the patient as they become available- Breast cancer screening: mammogram not indicated- Colon cancer screening: does not qualify- HPV immunizati on: has not received- STD testing: declined- hereditary cancer screening: does not qualify for testing Health Concerns Section Related Observation LastModified by Organization Detai ls LastModified Time None Recorded Concern Status LastModified by Organization Details LastModified Time None Recorded Advance Directives Directive None Recorded Payers Insurance Date Sequence Insurance Name Policy Number Policy Morrow Covered Member ID Morrow Member ID Guarantor Name 06/18/2024 1 [place] [id number] Philomena Maloney [id number] Philomena Maloney 06/05/2024 PAYMENT PLAN Philomena Maloney Notes Date Note Type Note Provider Name and Address Organization Details Recorded Time 3 text/html Generic HPI TemplateReported by Patient Philomena Pardeep Sifuentes CNM [address], [place], [address], [facility] 07/30/2022 16:33:35 3 text/html VisitReported by PatientHPIFor quality, patient reportsnsvd. For context, patient reportscomplications of : none,complications of labor: none,laceration: __, complications: none,feeding choice: bottle,good support from partner/family, andresumed menstrual bleeding no. For associated symptoms, patient reportsno abnormal bleedingandno vaginal discharge(stitch maybe? itches). For contraception plan, patient reportsdeclines contraception.doing well hx side effects with bc so will use condoms, baby doing well!ROS as noted in the HPI Katlyn marcano, [facility] 09/01/2022 18:25:41 3 text/html Vaginal/Vulvar ProblemReported by Patient 32yopresents to discuss vaginal discharge/odorsymptoms present on and off x 3 months - notices it more a few days after her period endsSA with steady male partnercondoms for BCbottle feeding 6 month oldhx of IBS - C, constipation on and off. Has noticed blood in the stool/rectal bleeding a few times after straining to have a bowel movementneg pelvic painneg n/v/fneg urinary symptomsneg flank pains GRUPO Downey [address], [place], [address], [facility] 02/23/2023 17:13:38 5 text/html ROS as noted in the HPI Presents today for her annual well-woman exam. Denies abnormal vaginal discharge. She is sexually active but reports deep dyspareunia since delivery due to tension in her pelvic muscles. Has not seen pelvic floor PT. She is using condoms for contraception, and she states that she is satisfied with this method. She has not noticed any changes or masses in her breasts. Regular periods. Patient also reports hx of anal fissure that is currently healed. Has intermittently pain. AWAIS MAY MD [address], [place], [address], [facility] 06/15/2024 16:58:44 OBGyn Episode Ob Episode Information Episode Created Date Number of Fetuses Patient Bloodtype Patient rh Status Prepregnancy Weight lbs Domestic Partner Domestic Partner Phone Father Name Baggage Porter Head Status 01/15/20 22 1 B Positive 139 CLOSED Fetus Data First Name Last Name Admitted to NICU Weight (g) Sex Living Outcome Pediatric Complications Fetus ID Race Codes Race Delivery Type 3430.28 95 M true Full Term [id number] Vaginal Delivery Problems Problem Notes 06/25/22 PIH Labs WNL Problem Name Start Date End Date Resolution Snomed Code Not e Anxiety 10311953 stable, un txed Irritable bowel syndrome 05750007 stable - consti pation Proteinuria 06/15/2022 53954634 24TP - 442 - weekly testing & pre-e precautions Tip Calculation Initial Tip Date Initial Exam Date Initial Exam Provider Initial Ultrasound Date Last Menstrual Period Date Ultra Sound Weeks Gestation 07/29/2022 01/14/2022 12/25/2021 10/22/2021 9 Eighteen To Twenty Week Tip Update Ultra Sound Date Fundal Height At Umbil Quickening Date Ultra Sound Latest Weeks Gestation Final Tip Confirmed By Final Tip Confirmed Date Final Tip Date Ultra Sound Latest Days Gestation 0 [email or web address] 01/14/2022 07/30/19 23 0 Pre-dmitri Flowsheet Flowsheet Date 01/14/2022 Otero Score Blood Edema Fundus Height Fundus Units Glucose Ketones Leukocytes Nitrite Labor Signs Protein Cervic Dilation Cervic Effacement Cervic Station Type Weight in lbs Pre/Post Dialysis Refused BP Diastolic BP Location Tested BP Systolic BP Type Fetus Heart Rate Present Fetus Movement Comments Flowsheet Date 01/14/2022 Otero Score Blood Edema Fundus Height Fundus Units Glucose Ketones Leukocytes Nitrite Labor Signs Protein Cervic Dilation Cervic Effacement Cervic Station 12 Type Weight in lbs Pre/Post Dialysis Refused Weight 142.445407114432 BP Diastolic BP Location Tested BP Systolic BP Type 69 R arm 103 sitting Fetus Heart Rate Present A 155 Fetus Movement Comments this patient is a 31-year-ol d 1 at 12 weeks gestation presents for initial care. She has history of IBS and anxiety. Her anxiety is not treated at this time but it is stable. Her IBS is not treated at this time. She has not take any medications. Her IBS is stable. She is use MiraLax because of recent constipation. She is vaccinated. She was given recommendations on flu vaccine and Tdap. She will begin routine care. Flowsheet Date 02/12/2022 Otero Score Blood Edema Fundus Height Fundus Units Glucose Ketones Leukocytes Nitrite Labor Signs Protein Cervic Dilation Cervic Effacement Cervic Station neg none none trace Type Weight in lbs Pre/Post Dialysis Refused Weight 142.779134210789 BP Diastolic BP Location Tested BP Systolic BP Type 78 117 Fetus Heart Rate Present A 150 Fetus Movement A Yes Comments patient is having some migra lisbeth, nausea and vomiting. tylenol not helping migraine, precautions reviewed, disc ob classes, f/u 4 weeks anatomy scan Flowsheet Date 03/17/2022 Otero Score Blood Edema Fundus Height Fundus Units Glucose Ketones Leukocytes Nitrite Labor Signs Protein Cervic Dilation Cervic Effacement Cervic Station Type Weight in lbs Pre/Post Dialysis Refused BP Diastolic BP Location Tested BP Systolic BP Type Fetus Heart Rate Present Fetus Movement Comments Flowsheet Date 03/17/2022 Otero Score Blood Edema Fundus Height Fundus Units Glucose Ketones Leukocytes Nitrite Labor Signs Protein Cervic Dilation Cervic Effacement Cervic Station neg none none trace Type Weight in lbs Pre/Post Dialysis Refused Weight 148.929283568077 BP Diastolic BP Location Tested BP Systolic BP Type 66 102 Fetus Heart Rate Present Fetus Movement A Yes Comments patient states that having s ome constipation, headaches, nausea and vomiting. increase miralax bid, ok to get flu now, has covid vaccines, anatomy complete EFW 86%, reviewed precautions will try reglan /benadryl for [place] Flowsheet Date 04/16/2022 Otero Score Blood Edema Fundus Height Fundus Units Glucose Ketones Leukocytes Nitrite Labor Signs Protein Cervic Dilation Cervic Effacement Cervic Station neg none none trace Type Weight in lbs Pre/Post Dialysis Refused Weight 150.607290465030 BP Diastolic BP Location Tested BP Systolic BP Type 72 108 Fetus Heart Rate Present A 148 Present Fetus Movement A Yes Comments doing well, +FM, discussed p ediatrician/classes/first aid , precautions reviewed. plan GCT at next visit and then will start 2 week visits Flowsheet Date 05/07/2022 Otero Score Blood Edema Fundus Height Fundus Units Glucose Ketones Leukocytes Nitrite Labor Signs Protein Cervic Dilation Cervic Effacement Cervic Station Type Weight in lbs Pre/Post Dialysis Refused BP Diastolic BP Location Tested BP Systolic BP Type Fetus Heart Rate Present Fetus Movement Comments Flowsheet Date 05/07/2022 Otero Score Blood Edema Fundus Height Fundus Units Glucose Ketones Leukocytes Nitrite Labor Signs Protein Cervic Dilation Cervic Effacement Cervic Station neg none none trace Type Weight in lbs Pre/Post Dialysis Refused Weight 157.141372320691 BP Diastolic BP Location Tested BP Systolic BP Type 79 L arm 123 sitting Fetus Heart Rate Present A Present Fetus Movement A Yes Comments patient states having heartb urn, efw 52%, tressa breech, exercises given, ok for pepcid, spinning babies f/u 2 week, gct today Flowsheet Date 05/21/2022 Otero Score Blood Edema Fundus Height Fundus Units Glucose Ketones Leukocytes Nitrite Labor Signs Protein Cervic Dilation Cervic Effacement Cervic Station neg none 29 none trace Type Weight in lbs Pre/Post Dialysis Refused Weight 160.068104305087 BP Diastolic BP Location Tested BP Systolic BP Type 68 102 Fetus Heart Rate Present A 135 Fetus Movement A Yes Comments baby and diaper shower in 2 weeks, ok to get tdap, precautions reviewed f/u 2 weeks Flowsheet Date 06/04/2022 Otero Score Blood Edema Fundus Height Fundus Units Glucose Ketones Leukocytes Nitrite Labor Signs Protein Cervic Dilation Cervic Effacement Cervic Station neg trace 31 none trace Type Weight in lbs Pre/Post Dialysis Refused Weight 163.751615252332 BP Diastolic BP Location Tested BP Systolic BP Type 77 114 Fetus Heart Rate Present A 155 Present Fetus Movement A Yes Comments patient is having some swell ing and pain. reviewed pih precautions, PTL, call for preadmit Flowsheet Date 06/18/2022 Otero Score Blood Edema Fundus Height Fundus Units Glucose Ketones Leukocytes Nitrite Labor Signs Protein Cervic Dilation Cervic Effacement Cervic Station Type Weight in lbs Pre/Post Dialysis Refused BP Diastolic BP Location Tested BP Systolic BP Type Fetus Heart Rate Present Fetus Movement Comments Flowsheet Date 06/18/2022 Otero Score Blood Edema Fundus Height Fundus Units Glucose Ketones Leukocytes Nitrite Labor Signs Protein Cervic Dilation Cervic Effacement Cervic Station Type Weight in lbs Pre/Post Dialysis Refused BP Diastolic BP Location Tested BP Systolic BP Type Fetus Heart Rate Present Fetus Movement Comments Flowsheet Date 06/18/2022 Otero Score Blood Edema Fundus Height Fundus Units Glucose Ketones Leukocytes Nitrite Labor Signs Protein Cervic Dilation Cervic Effacement Cervic Station neg trace none trace Type Weight in lbs Pre/Post Dialysis Refused Weight 165.360684156391 BP Diastolic BP Location Tested BP Systolic BP Type 75 113 Fetus Heart Rate Present Fetus Movement A Yes Comments proteinuria >400 on 24 hr ur ine, no sxs, went in to ld with black spots in periphery. none since, no epigastric pain no [place], bpp 8/8 precautions reviewed, Dr. Melton for superintendent measurement, preadmit scheduled, f/u one week, down to 1/2 days Flowsheet Date 06/25/2022 Otero Score Blood Edema Fundus Height Fundus Units Glucose Ketones Leukocytes Nitrite Labor Signs Protein Cervic Dilation Cervic Effacement Cervic Station Type Weight in lbs Pre/Post Dialysis Refused BP Diastolic BP Location Tested BP Systolic BP Type Fetus Heart Rate Present Fetus Movement Comments Flowsheet Date 06/25/2022 Otero Score Blood Edema Fundus Height Fundus Units Glucose Ketones Leukocytes Nitrite Labor Signs Protein Cervic Dilation Cervic Effacement Cervic Station Type Weight in lbs Pre/Post Dialysis Refused BP Diastolic BP Location Tested BP Systolic BP Type Fetus Heart Rate Present Fetus Movement Comments Flowsheet Date 06/25/2022 Otero Score Blood Edema Fundus Height Fundus Units Glucose Ketones Leukocytes Nitrite Labor Signs Protein Cervic Dilation Cervic Effacement Cervic Station neg none none trace Type Weight in lbs Pre/Post Dialysis Refused Weight 168.477778437336 BP Diastolic BP Location Tested BP Systolic BP Type 78 116 Fetus Heart Rate Present Fetus Movement A Yes Comments bpp 10/10, normal bp, no sxs , check labs today, gbs next week, precautions reviewed Flowsheet Date 07/02/2022 Otero Score Blood Edema Fundus Height Fundus Units Glucose Ketones Leukocytes Nitrite Labor Signs Protein Cervic Dilation Cervic Effacement Cervic Station Type Weight in lbs Pre/Post Dialysis Refused BP Diastolic BP Location Tested BP Systolic BP Type Fetus Heart Rate Present Fetus Movement Comments Flowsheet Date 07/02/2022 Otero Score Blood Edema Fundus Height Fundus Units Glucose Ketones Leukocytes Nitrite Labor Signs Protein Cervic Dilation Cervic Effacement Cervic Station Type Weight in lbs Pre/Post Dialysis Refused BP Diastolic BP Location Tested BP Systolic BP Type Fetus Heart Rate Present Fetus Movement Comments Flowsheet Date 07/02/2022 Otero Score Blood Edema Fundus Height Fundus Units Glucose Ketones Leukocytes Nitrite Labor Signs Protein Cervic Dilation Cervic Effacement Cervic Station neg none none trace Type Weight in lbs Pre/Post Dialysis Refused Weight 169.441488596504 BP Diastolic BP Location Tested BP Systolic BP Type 74 108 Fetus Heart Rate Present Fetus Movement A Yes Comments bpp 11/23 doing well, denies h a, visual changes, epigastric pain, labs last week wnl, precautions reviewed, preadmit today, reviewed labor f/u one week Flowsheet Date 07/09/2022 Otero Score Blood Edema Fundus Height Fundus Units Glucose Ketones Leukocytes Nitrite Labor Signs Protein Cervic Dilation Cervic Effacement Cervic Station Type Weight in lbs Pre/Post Dialysis Refused BP Diastolic BP Location Tested BP Systolic BP Type Fetus Heart Rate Present Fetus Movement Comments Flowsheet Date 07/09/2022 Otero Score Blood Edema Fundus Height Fundus Units Glucose Ketones Leukocytes Nitrite Labor Signs Protein Cervic Dilation Cervic Effacement Cervic Station Type Weight in lbs Pre/Post Dialysis Refused BP Diastolic BP Location Tested BP Systolic BP Type Fetus Heart Rate Present Fetus Movement Comments Flowsheet Date 07/09/2022 Otero Score Blood Edema Fundus Height Fundus Units Glucose Ketones Leukocytes Nitrite Labor Signs Protein Cervic Dilation Cervic Effacement Cervic Station neg none none trace 0cm Type Weight in lbs Pre/Post Dialysis Refused Weight 169.075546855274 BP Diastolic BP Location Tested BP Systolic BP Type 73 111 Fetus Heart Rate Present Fetus Movement A Yes Comments doing well, denies [place], visua l changes, epigastric pain, labs today, sergo 8, labor precautions reviewed Flowsheet Date 07/16/2022 Otero Score Blood Edema Fundus Height Fundus Units Glucose Ketones Leukocytes Nitrite Labor Signs Protein Cervic Dilation Cervic Effacement Cervic Station Type Weight in lbs Pre/Post Dialysis Refused BP Diastolic BP Location Tested BP Systolic BP Type Fetus Heart Rate Present Fetus Movement Comments Flowsheet Date 07/16/2022 Otero Score Blood Edema Fundus Height Fundus Units Glucose Ketones Leukocytes Nitrite Labor Signs Protein Cervic Dilation Cervic Effacement Cervic Station Type Weight in lbs Pre/Post Dialysis Refused BP Diastolic BP Location Tested BP Systolic BP Type Fetus Heart Rate Present Fetus Movement Comments Flowsheet Date 07/16/2022 Otero Score Blood Edema Fundus Height Fundus Units Glucose Ketones Leukocytes Nitrite Labor Signs Protein Cervic Dilation Cervic Effacement Cervic Station neg none none trace Type Weight in lbs Pre/Post Dialysis Refused Weight 170.618101801867 BP Diastolic BP Location Tested BP Systolic BP Type 74 114 Fetus Heart Rate Present Fetus Movement A Yes Comments patient is having some contr actions, discharge, acid reflux and nausea. reviewed precautions, education, growth, disc possible induction around due date f/u one week, labs today Flowsheet Date 07/21/2022 Otero Score Blood Edema Fundus Height Fundus Units Glucose Ketones Leukocytes Nitrite Labor Signs Protein Cervic Dilation Cervic Effacement Cervic Station Type Weight in lbs Pre/Post Dialysis Refused BP Diastolic BP Location Tested BP Systolic BP Type Fetus Heart Rate Present Fetus Movement Comments Flowsheet Date 07/21/2022 Otero Score Blood Edema Fundus Height Fundus Units Glucose Ketones Leukocytes Nitrite Labor Signs Protein Cervic Dilation Cervic Effacement Cervic Station Type Weight in lbs Pre/Post Dialysis Refused BP Diastolic BP Location Tested BP Systolic BP Type Fetus Heart Rate Present Fetus Movement Comments Flowsheet Date 07/21/2022 Otero Score Blood Edema Fundus Height Fundus Units Glucose Ketones Leukocytes Nitrite Labor Signs Protein Cervic Dilation Cervic Effacement Cervic Station neg none none trace Type Weight in lbs Pre/Post Dialysis Refused Weight 173.948349248748 BP Diastolic BP Location Tested BP Systolic BP Type 76 116 Fetus Heart Rate Present Fetus Movement Comments bpp 8/8 bp normotensive, den ies headache, visual changes, epigastric pain, precautions reviewed, education done, f/u one week disc IOL between 40-41 weeks if no spontaneous labor Flowsheet Date 07/30/2022 Otero Score Blood Edema Fundus Height Fundus Units Glucose Ketones Leukocytes Nitrite Labor Signs Protein Cervic Dilation Cervic Effacement Cervic Station Type Weight in lbs Pre/Post Dialysis Refused BP Diastolic BP Location Tested BP Systolic BP Type Fetus Heart Rate Present Fetus Movement Comments Flowsheet Date 07/30/2022 Otero Score Blood Edema Fundus Height Fundus Units Glucose Ketones Leukocytes Nitrite Labor Signs Protein Cervic Dilation Cervic Effacement Cervic Station Type Weight in lbs Pre/Post Dialysis Refused BP Diastolic BP Location Tested BP Systolic BP Type Fetus Heart Rate Present Fetus Movement Comments Flowsheet Date 07/30/2022 Otero Score Blood Edema Fundus Height Fundus Units Glucose Ketones Leukocytes Nitrite Labor Signs Protein Cervic Dilation Cervic Effacement Cervic Station neg none none trace 1cm 70% -2 Type Weight in lbs Pre/Post Dialysis Refused Weight 174.33964916733 BP Diastolic BP Location Tested BP Systolic BP Type 81 124 Fetus Heart Rate Present Fetus Movement A Yes Comments patient is having contractio ns and discharge. NST R, bpp today, plan IOL on tuesday morning precautions reviewed check blood work today Menstrual History Last Menstrual Date Menses Monthly On Bcp Conception Prior Menses Frequency Hcg Plus Date Menarche Onset Age 0710/22/2021 Genetic Screening And Infection History Question Response Note Mental Retardation/Autism false Patient's Age Will Be 35 Years Or Older At Estim ated Date of Delivery false Thalassemia (Pashto, Cameroonian, Mediterranean, Or Background): MCV < 80 false Neural Tube Defect (Meningomyelocele, Spina Bifi da, Or Anencephaly) false Congenital Heart Defect false Down Syndrome false Nathan-Sachs (eg, Cheondoism, Cajun, Ivorian-Afghan) f alse Myrna Disease false Sickle Cell Disease Or Trait () false Hemophilia Or Other Blood Disorders false Muscular Dystrophy false Cystic Fibrosis false Julissa's Chorea false Intellectual Disability/Autism false If Yes, Was Person Tested For Fragile X? false Other Inherited Genetic Or Chromosomal Disorder false Maternal Metabolic Disorder (eg, Type 1 Diabetes , PKU) false Patient Or Baby's Father Had A Child With Defects Not Listed Above false Recurrent Loss, Or A Stillbirth false Medications (including Suppl ements, Vitamins, Herbs, OTC Drugs), Illicit/Recreational Drugs, Alcohol false If Yes, Agent(s) And Strength/Dosage false Any Other Genetic History false Live With Someone With TB Or Exposed To TB false Patient Or Partner Has History Of Genital Herpes false Rash Or Viral Illness Since Last Menstrual Perio d false History Of STD, Gonorrhea, Chlamydia, HPV, Syphi lis false Other Infection History false History of HIV false History of Hepatitis false Prior GBS-infected child false Hemoglobinopathy Or Carrier false Other Structural Defect false Recent Travel History Outside of Country false Delivery Information Delivery Date Delivery Type Labor Anesthesia Weeks Gestation Incision Type Labor Labor Length Hrs Delivered By Post Complications Tubal Sterilization Discharge Date Comments 3 [facility] idural 40.2 false Philomena Sifuentes CNM oligo, ibs, proteinur ia Discharge Information Feeding Method Contraceptive Method Maternal HG B and HCT Levels
--- OUTSIDE RECORDS SUMMARY | 2025-04-14 12:08 | XMS_ITS | Data Portability ---
Author Organization [facility] GUIYamilet [facility] Address [address] [place] [address] Assessment No assessment recorded. Plan of Treatment Reminders Order Date Submit Date Provider Last Modified By Organization Details Last Modified Time Details Appointments None recorded. Lab None recorded. Referral None recorded. Procedures None recorded. Surgeries None recorded. Imaging None recorded. Medication Orders sertraline 25 mg tablet 2019 020 [facility] #[id number], [address] [place] [address], [id number], 0 14:43:11 sertraline 25 mg tablet 2019 020 [facility] #[id number], [address] [place] [address], [id number], 0 16:23:25 Augmentin 875 mg-125 mg tablet [address] [facility] #[id number], [address] [place] [address], [id number], 0 12:10:45 Zyrtec 10 mg tablet 2018 [address] [facility] [facility] #[id number], [address] [place] [address], [id number], 0 16:07:21 Patient TargetsNo targets recorded. Patient InstructionsNo instructions recorded. Reason for Referral None Reported. Results Created Date Observation Date Name Description Value Unit Range Abnormal Flag Note LastModifiedBy Organization Detail LastModifiedTime 11/05/19 21 11/03/2020 XR, toe(s ), 2 or more view No observ ation record ed. [email or web address] [facility] [address], [place], [address], 11/04/2020 16:08:08 Result Notes None recorded. Problems No Known Problems Medical Equipment None Reported. Allergies No known drug allergies Medications Name Sig Start Date Stop Date Status Note LastModified by Organization Details LastModified Time amoxicillin 500 mg capsule 03/05 completed Not Available Not Available Not Available Augmentin 875 mg-125 mg tablet Take 1 tablet every 12 hours by oral route for 10 days. 06/13 completed Not Available Not Available Not Available paroxetine 10 mg tablet 03/05 completed Not Available Not Available Not Available Zyrtec 10 mg tablet Take 1 tablet every day by oral route. 06/17 completed Not Available Not Available Not Available alprazolam 0.25 mg tablet active Not Available Not Available Not Available sertraline 25 mg tablet Take 1 tablet every day by oral route as directed for 30 days. 2019 active Not Available Not Available Not Avai lable Afluria Quad 60 mcg (15 mcg x 4)/0.5 mL intramuscul ar susp. 03/05 completed Not Available Not Available Not Available Vitals Date Recorded Body height Body mass index (BMI) Body weight Heart rate Respiratory rate Body temperature Systolic And Diastolic Provider Name and Address Organization Details Last Updated DateTime 0 170.18 cm 21.6 kg/m2 19147.0 3 g 76 /min 16 /min 98 [degF] 108/62 mm[Hg] Sonam Weaver MA [place] - [facility] 0 16:02:04 Date Recorded Body height Provider Name an d Address Organization Details Last Updated DateTime 11/21/2019 170.18 cm Estrellita Valderrama MA [facility] 0 14:32:38 Date Recorded Body height Body mass index (BMI) Body weight Heart rate Respiratory rate Body temperature Systolic And Diastolic Provider Name and Address Organization Details Last Updated DateTime 9 170.18 cm 21.2 kg/m2 44298.1 3 g 92 /min 20 /min 97.6 [degF] 112/62 mm[Hg] Sonam Weaver MA [place] - [facility] 9 14:42:18 Social History Question Answer Notes LastModified by Organizat ion Details LastModified Time Tobacco Smoking Status Never Smoker Sonam Weaver MA null, [facility] 03/05/2019 14:41:08 What Is Your Level Of Caffeine Consumption? Occasional Information not available 03/05/2019 How Much Tobacco Do You Chew? None Information not available 03/05/2019 Which Illicit Or Recreational Drugs Have You Used? None Information not available 03/05/2019 Hard Of Hearing Or Deaf In One Or Both Ears? No Information not available 03/05/2019 Legally Blind In One Or Both Eyes? No Information no t available 03/05/2019 Marital Status Single Informatio n not available 03/05/2019 What Was The Date Of Your Most Recent Tobacco Screening? 03/05/2019 Information not available 03/06/2019 General Stress Level Medium Information not available 03/05/2019 How Many Years Have You Smoked Tobacco? 0 Information not available 03/05/2019 Sex: Unknown Functional Status Question Answer Note LastModified by Organizat ion Details LastModified Time What is your level of alcohol consumption? 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 Family History Relationship Description Onset Age of this Age Resolved Age Notes LastModified by Organization Details LastModified Time Mother Disorder of thyroid gland Not available 2018 14:40:24 Father Myocardial infarction Not available 03/05 14:40:43 Paternal Grandfather Myocardial infarction Not available 03/05 14:40:43 Paternal Grandmother Family history of malignant neoplasm Not available 2018 14:41:00 Maternal Grandfather Family history of malignant neoplasm Not available 2018 14:41:00 Medical History No medical history recorded. Gynecological History Statement/Question Response Menses Monthly Y Age at Menarche 14 LMP Approximate Obstetrics History GPAL:G 0 P 0 0 0 0 Type Value Multiple Births 0 Full Term 0 Induced 0 Spontaneous 0 Premature 0 Living 0 Ectopics 0 Total 0 Past Encounters Encounter ID Performer Location Encounter Start Date Encounter Closed Date Diagnosis/Indication Diagnosis SNOMED-CT Code Diagnosis ICD10 Code Diagnosis IMO Codes Diagnosis Note [id number] MD Derian Darnell [address] [place] [address] 03/05/2019 14:26:15 03/06/2019 10:11:11 Acute sinusitis 28393671 J01.90 -Take medication as directed -Use flonase as directed -Take with food/yogur t and a probiotic -Take allergy medication as discussed. [id number] RAYMOND Dotson [address] [place] [address] 06/18/2019 15:53:08 06/19/2019 12:49:21 Mixed anxiety and depressive disorder 119888158 F41.8 -Continue medication as discussed- Black box warning, including suicide discussed with patient. She states understand ing-She will return for a recheck in symptoms.- Advised to call or return if symptoms do no improve.-C ognitive behavorial therapy also discussed with patient [id number] MD Derian Darnell [address] [place] [address] 11/21/2019 09:39:14 11/22/2019 14:24:33 Mixed anxiety and depressive disorder 973743924 F41.8 -Continue medication as discussed- Black box warning, including suicide discussed with patient. She states understand ing-Advise d to call or return if symptoms do no improve.-C ognitive behavorial therapy also discussed with patient-Amalia bush has 2-3 xanax pills left from her prescripti on one year ago. Health Concerns Section Related Observation LastModified by Organization Detai ls LastModified Time None Recorded Concern Status LastModified by Organization Details LastModified Time None Recorded Advance Directives Directive None Recorded Payers Insurance Date Sequence Insurance Name Policy Number Policy Morrow Covered Member ID Morrow Member ID Guarantor Name 11/04/2020 1 [employer] CHO[place] [id number] Philomena Bojorquez [id number] Philomena Bojorquez Notes Date Note Type Note Provider Name and Address Organization Details Recorded Time 9 text/html Asthma F/UReported by PatientHPIFor severity, patient reportssymptoms cause awakening from sleepandinterferes with daily activities. For context, patient reportsworsening. For associated symptoms, patient reportscoughbut reportsno fever,no fatigue,no irritability,normal appetite,no changes in productivity, andno shortness of breath. For quality, patient reportssymptoms worse during the day.ROS as noted in the HPI Cough, bilateral ear pain 3 weeks. reports sinus pain x 2 weeks. Feels like ears are popping. Denies fever. Blowing purulent drainage from nose. Productive cough of greenish/yellow phlegm. FREDI Mancilla NP Attn: [employer] [place], [address], [facility] 03/05/2019 15:24:33 0 text/html Anxiety/DepressionRepor jesus by PatientHPIFor quality, patient reportsincreased anxiety. For associated symptoms, patient reportsanxietybut reportsdenies homicidal ideations,no significant weight gain,no significant weight loss,no visual/auditory hallucinations,no delusions,no shortness of breath,mood good,no crying spells,no panic,no isolation,sleeping well,appetite good,energy good,no apathy, andmaintaining functionality. For severity, patient reportsdenies suicidal ideations,able to maintain relationships, anddoes not interfere with activities of daily living. For context, patient reportsno major life stressors.ROS as noted in the HPI Here to establish care. Pt states she needs a refill on her anxiety/depression medication. She take Sertraline 25 mg PO HS. Pt states she has been on the medication for the past 9 months. She states it has helped her mood improve. Sleeping regularly. SHe states she was having panic attack prior and has not had any since begining the medication. She has been prescribed xanax in the past but has not needed it in the past 6 months. LMP: 05/28. Denies chance of . No SI/HI. She reports a better overall mood since starting medication. FREDI Mancilla NP Attn: [employer] , [place], [address], [facility] 06/18/2019 16:55:05 0 text/html Anxiety/DepressionRepor jesus by PatientHPIFor quality, patient reportssymptoms improved. For severity, patient reportsdenies suicidal ideations,able to maintain relationships, anddoes not interfere with activities of daily living. For context, patient reportsno major life stressors. For associated symptoms, patient reportsdenies homicidal ideations,no significant weight gain,no significant weight loss,no visual/auditory hallucinations,no delusions,no shortness of breath,mood good,no anxiety,no crying spells,no panic,no isolation,sleeping well,appetite good,energy good,no apathy, andmaintaining functionality.ROS as noted in the HPI Phone visit with permission from patient for medication refill. Pt has been taking sertraline 25 mg PO QD for the last year. She states it works well. No SI/HI. Requesting refill. States her mood has been stable. Denies chance of . Had xanax for occasional anxiety attacks. She was prescribed 10 pills one year ago. FREDI Mancilla NP Attn: [employer] , [place], [address], [facility] 11/21/2019 14:52:27 OBGyn Episode No OBEpisode recorded.
[2025-04-14 12:26] VITALS: BP 108/79; PULSE 105; RESP 18; TEMP 36.6; O2SAT 99
[2025-04-14] MEDS: KETOROLAC (*BKC) 60 MG/2 ML VIAL IM (13:11)
--- NOTE | 2025-04-14 13:13 | ED_ITS ---
HPI - URI/Sore Throat General Chief Complaint: Upper Respiratory Infection Stated Complaint: Fever History of Present Illness HPI Narrative: Chief Complaint: Four days of low-grade fever and a pulsing headache on the right side extending into the eye. Patient Summary: A patient presents with four days of low-grade fever and a severe headache, alongside other upper respiratory symptoms. History of Present Illness: The patient reports experiencing a low-grade fever and a severe, pulsing headache on the right side of the head extending into the eye for the past four days. Additionally, she has a dry cough, particularly at night, which occasionally produces green, clumpy sputum. Other symptoms include chills, body aches (noted on the first day), and a runny nose. The patient attempted self- medication with Tylenol, Advil Cold and Flu, Mucinex, and Sudafed, but none alleviated her headache. She has had exposure to illness through her two and a [id number]-ycsm-cmo son and , who have shown improvement. She reports no shortness of breath but did experience a racing heart, potentially due to medication. She denies and has tested negative for COVID and Flu A and B. Social History: - Lives with and two and a tavp-eodq-ama son. - Was supposed to host [place] but had to cancel due to illness. Family History: - Not discussed. Review of Systems: - General: Low-grade fever, chills, body aches. - HEENT: Headache, runny nose. - Respiratory: Dry cough, occasional green sputum at night. - Cardiovascular: Reports heart racing, possibly due to medication. - Neurological: Headache intensity increases with light exposure. - Gastrointestinal: No nausea. Vitals and Physical Exam findings: - Lungs are clear on examination. - Not available for other vitals. Related Data Home Medications ?Medication ?Instructions ?Recorded ?Confirmed ?Last Taken ?Type polyethylene glycol 3350 17 17 g PO DAILY 04/19/23 Unknown History gram/dose oral powder (Miralax) Allergies Allergy/AdvReac Type Severity Reaction Status Date / Time No Known Allergies Allergy Verified 04/14/25 12:15 Review of Systems Review of Systems: All systems reviewed & are unremarkable except as noted in HPI and below Eyes: Eyes: Reports as per HPI ENT: Reports as per HPI Cardiovascular: Cardiovascular: Reports as per HPI Respiratory: Respiratory: Reports as per HPI Genitourinary: Genitourinary: Reports as per HPI Musculoskeletal: Musculoskeletal: Reports as per HPI Integumentary/Breasts: Skin/Breast: Reports as per HPI Neurologic: Reports as per HPI Psychiatric: Psychiatric: Reports as per HPI Endocrine: Endocrine: Reports as per HPI Hematologic/Lymphatic: Hematologic/Lymphatic: Reports as per HPI Allergic/Immunologic: Allergic/Immunologic: Reports as per HPI PMF Past Medical History Medical History Anal fissure Anal skin tag Family hx colonic polyps Family hx of colon cancer Hematochezia Irritable bowel syndrome with constipation IUP (intrauterine ), incidental Family History Family History Father Heart attack Grandparent Colon cancer Mother Hypothyroidism Social History Social History Smoking status: Never smoker Alcohol intake: current Alcohol use details: 5 drinks monthly Substance use: former Substance use type: does not use Lack of Transportation: No Lack of Food: Never True Current Housing: I Have Housing Concerned About Future Housing: No Difficulty Paying Gas/Electric Bills: No Difficulty Paying for Meds: No Currently Unemployed: No Education: Associate Degree Difficulty w/ Childcare or Family Care: No Living arrangements: with family Spiritual care concerns: No Exam Const: General: cooperative, healthy appearing, comfortable, no acute distress and well developed Orientation/consciousness: patient oriented x3 HENMT: Head: normal to inspection Eyes: General: appearance normal, both eyes and all related structures Resp: Effort & Inspection: normal respiratory effort and able to speak in complete sentences Auscultation: clear to auscultation bilaterally Cardio: Rate: regular rate Rhythm: regular rhythm Heart sounds: S1 normal heart sound present and S2 normal heart sound present Skin: General skin exam: normal color Neuro: General: patient oriented x3 Cognition (Neuro): normal cognition Speech: normal speech Psych: Mental Status: mental status grossly normal Course Course Level of Care: Express Care Visit Vital Signs Vital signs: Vital Signs Temperature 97.9 F 04/14/25 12:26 Pulse Rate 105 H 04/14/25 12:26 Respiratory Rate 18 04/14/25 12:26 Blood Pressure 108/79 04/14/25 12:26 Pulse Oximetry 99 04/14/25 12:26 Oxygen Delivery Room Air 04/14/25 12:26 Temperature 97.9 F 04/14/25 12:26 Pulse Rate 105 H 04/14/25 12:26 Respiratory Rate 18 04/14/25 12:26 Blood Pressure 108/79 04/14/25 12:26 Pulse Oximetry 99 04/14/25 12:26 Oxygen Delivery Room Air 04/14/25 12:26 [facility] Narrative Medical decision making narrative: 34-year-old HPI as noted. Patient has 4 days of fever with cough headache suspect viral but due to length of fever will get a chest x-ray. Chest x-ray shows no acute cardiopulmonary process. Patient was with Dr. Adorno rating 5/10 and states that the worst of her symptoms was given Toradol while she was here. Prior to discharge patient stated she felt much better and had a smile on her face. She did note a small blister to the left middle digit but not anywhere else. Denies any contact with [id number]-atlnl but at this time her throat shows no blisters. He does have a 2-year-old at home who has similar URI symptoms but he is much improved and has had no symptoms of ckcg-sutz-xetzk. Assessment: 1. Viral upper respiratory infection. 2. Possible bacterial pneumonia (to be ruled out with chest X-ray). 3. Severe headache, likely due to sinus congestion. Plan: - Order chest X-ray to rule out pneumonia. - Administer Toradol shot for headache relief. - Recommend continuation of fluids, Tylenol, ibuprofen, and Sudafed (pseudoephedrine) for symptom management. - Encourage rest and avoidance of stress, especially due to recent holiday plans. - Monitor symptoms and follow up if no improvement. Differential Diagnosis Differential Diagnosis: Assessment: 1. Viral upper respiratory infection. 2. Possible bacterial pneumonia (to be ruled out with chest X-ray). 3. Severe headache, likely due to sinus congestion. Lab Data [facility] Lab Attestation statement: I personally reviewed the patient's lab results. Labs: Lab Results 04/14/25 Range/Units 13:25 POC Influenza A Ag Negative (Negative) POC Influenza B Ag Negative (Negative) POC SARS CoV-2 Ag Negative (Negative) Imaging Data Radiologist's impression: ITS Impressions Chest X-Ray 04/14/25 13:29 IMPRESSION: 1. No acute cardiopulmonary findings. Discharge Plan Discharge Clinical Impression: Viral illness URI (upper respiratory infection) Qualifiers: URI type: unspecified viral URI Qualified Code(s): J06.9 - Acute upper respiratory infection, unspecified Patient Disposition: Home Condition: Stable Instructions: Antibiotic Form Additional Instructions: Tylenol or ibuprofen as needed for pain or fever. For nasal congestion use pseudoephedrine which is behind the counter at the pharmacy as prescribed. Flonase you can also use. Cool-mist humidifier to help thickened secretions. He had a chest x-ray today which showed no acute cardiopulmonary findings or no pneumonia. If no improvement follow-up with your primary care physician. Push fluids. Patient Language: Upper Sorbian Prescriptions: No Action famotidine 20 mg tablet 20 mg PO DAILY Qty: 30 0RF polyethylene glycol 3350 [Miralax] 17 gram/dose Powder 17 g PO DAILY Follow-up/Referrals: Margarita,Amrita Ortiz APRN [Primary Care Provider, Unknown] Time of Disposition: 13:46 Quality NIHSS Nursing Documentation ED NIHSS nursing documentation: reviewed/agree
[2025-04-14 13:27] LABS: EDCOVIDSCREEN Negative (Negative); EDINFLUASCREEN Negative (Negative); EDINFLUBSCREEN Negative (Negative)
== END 2025-04-14 13:48 | disposition home or self-care (01) ==
PROVIDERS: Emergency Provider Nurse Practitioner Family; PCP Nurse Practitioner Family
DX: B34.9 Viral infection, unspecified (principal); J06.9 Acute upper respiratory infection, unspecified; Z20.822 Contact with and (suspected) exposure to COVID-19
CPT/HCPCS: 71046; 87426; 87804; 96372; 99213; G0463; J1885